=== PATIENT | male | born 1960 | race Caucasian/White ===

== ENCOUNTER 2019-09-16 06:52 | Emergency (ER) | payer OTHER, SELFPAY ==
[2019-09-16 06:53] VITALS: BP 150/75; PULSE 86; RESP 18; TEMP 36.4; O2SAT 96
[2019-09-16 07:02] VITALS: BP 162/94; PULSE 74; RESP 18; O2SAT 96; BMI 41.3
--- NOTE | 2019-09-16 07:07 | XR_ITS ---
WS: [id number] LEFT FOOT: 3 VIEW(S) TECHNIQUE: AP, oblique and lateral. HISTORY: fall, pain COMPARISON: None available. Seen only on one view is a lucency through the proximal metaphysis of the third metatarsal suspicious for fracture. Normal tarsal/metatarsal alignment. No soft tissue abnormality or bone destruction. Small calcaneal spur. Enthesopathy Achilles tendon. XR/XR foot LT min 3V* [id number] IMPRESSION: Suspicious for nondisplaced transverse fracture proximal third metatarsal.
--- NOTE | 2019-09-16 07:07 | ECG_ITS ---
[facility] Test Date: 2019-09-16 Pat Name: Sam Hutson Department: Room: Gender: Male Trainer: : 1960 Requested By: Ann Campbell Order Number: [id number] Patrice MD: Olaf Wilder M.D. Measurements Intervals [place] Rate: 65 P: 42 GA: 190 QRS: -6 QRSD: 111 T: 5 QT: 400 QTc: 417 Interpretive Statements SINUS RHYTHM INCOMPLETE RIGHT BUNDLE BRANCH BLOCK [90+ ms QRS DURATION, TERMINAL R IN V1/V2, 40+ ms S IN I/aVL/V4/V5/V6] Compared to ECG 06/04/2018 10:22:30 Incomplete right bundle-branch block now present Electronically Signed On 09-16-2019 19:04:44 CDT by Olaf Wilder M.D. [id number]
--- NOTE | 2019-09-16 07:09 | ED_ITS ---
HPI - Extremity Problem General: Chief complaint: Extremity Injury, Lower Stated complaint: LEFT FOOT PAIN Time Seen by Provider: 09/16/19 07:00 History of Present Illness: HPI Narrative: This patient is a 58-year-old male presenting with left foot pain. He fell yesterday landing on his right knee and scraping up his right arm. He also has pain in his left midfoot. He can weight-bear only on his heel. He can walk normally. The pain continued throughout the night. Ibuprofen did not help. He does not know why he fell. He says he was just walking and says he may have tripped but is not sure. He has not been ill recently. His medical history is significant for bradycardic episodes that have caused him to have shortness of breath, diaphoresis and presented to the ED. He was on some sort of blood pressure medicine for some time as well as warfarin for this diagnosis. He stopped taking both of those. 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 He said he has never had a heart attack. He does not think that is what happened yesterday because normally these episodes last for a long time rather than being quick onset and resolution. MD Complaint: extremity pain Onset (ago): day(s) (1) Pain Consistency: constant Location: left and lower extremity Quality: aching Relieving factors: nothing Exacerbating factors: weight bearing, walking and palpation Associated symptoms: Deny chest pain, fever(s) or rash Review of Systems General: Reports: 10 or more systems reviewed and unremarkable except in HPI and below Const: Denies: fever(s), chills, fatigue or malaise Eyes: Denies: change in vision ENMT: Reports: other (Seasonal allergies); Denies: odynophagia Card: Denies: chest pain or swelling of feet/ankles Resp: Denies: dyspnea, productive cough or non-productive cough GI: Denies: abdominal pain, nausea or vomiting : Denies: flank pain Musc: Denies: neck pain or back pain Skin/Breast: Denies: rash Neuro: Denies: headache(s), numbness in extremities or weakness in extremities Bobby/Lymph: Denies: easy bruising or easy bleeding [facility] ED PFSH: Social History (Updated 04/06/19 @ 10:00 by Laura Martin, DOCUMENTATION ANALYST) Smoking and tobacco status: never smoked Alcohol intake: never Physical Exam Const: COMMON NORMALS: no acute distress, patient oriented x3, no limitations and alert GENERAL APPEARANCE: cooperative and comfortable HENMT: HEAD & SCALP: normal to inspection FACE & SINUS: normal facial exam Eye: GENERAL EYE: appearance normal, both eyes and all related structures Neck/C-Spine: COMMON NORMALS: supple, no meningeal signs and no JVD Chest: COMMONS NORMALS: normal inspection of the chest Resp: COMMON NORMALS: normal respiratory effort, No use of accessory muscles and clear to auscultation bilaterally AUSCULTATION: clear to auscultation bilaterally Cardio: COMMON NORMALS: no JVD, regular rate, regular rhythm and No murmurs present (Cardio) RATE: regular rate RHYTHM: regular rhythm GI: COMMON NORMALS: Normal to inspection, nondistended, normoactive bowel sounds present, Soft to palpation and non-tender INSPECTION: Yes normal to inspection AUSCULTATION: Yes normoactive bowel sounds PALPATION: Yes Soft to palpation Back/Pelvis: COMMON NORMALS: thoracic and lumbar spine normal to inspection Extremity: GENERAL: Yes normal exam except as noted LEFT LOWER EXTREMITY: Yes foot & digits (Tenderness on palpation across the midfoot, worse on the medial side. No obvious deformity, no ecchymosis, some swelling.) Neuro: COMMON NORMALS: patient oriented x3, moves all extremities, no focal motor deficits and no sensory deficits noted SENSORIUM/ORIENTATION: Yes alert MENINGEAL SIGNS: Yes no meningeal signs Psych: COMMON NORMALS: mental status grossly normal, cooperative and normal affect Skin: COMMON NORMALS: no rashes or lesions noted and turgor normal GENERAL SKIN EXAM: no rashes or lesions noted and turgor normal Course ED course: Patient with foot pain after fall. On x-ray he has a subtle third metatarsal shaft fracture which is nondisplaced. He also gave me history of some bradycardic episodes which do not sound similar to what happened to him yesterday but an EKG was done to make sure he was in sinus rhythm. The EKG was in fact sinus rhythm. He said the episode felt nothing like prior episodes of bradycardia that he has had. He was put in a splint and made nonweightbearing. We discussed whether he was able to use crutches or could use a walker. He refused a walker and says he will use crutches. I counseled him regarding the instability of crutches and given that he has had falls the crutches are putting him at higher risk. He says he will mostly just stay off his foot and will be careful with the crutches. Vital Signs: Vital signs: Vital Signs Temperature 97.6 F 09/16/19 09:57 Pulse Rate 86 09/16/19 09:57 Respiratory Rate 16 09/16/19 09:57 Blood Pressure 150/75 09/16/19 09:57 Pulse Oximetry 96 09/16/19 09:57 MDM - Extremity (Nontraumatic) EKG Data^: EKG 1: EKG interpretation date: 09/16/19 EKG interpretation time: 07:15 Interpretation: sinus rhythm - incomplete RBBB Discharge Plan Discharge Patient Disposition: Home, Self-Care Clinical Impression: Metatarsal bone fracture Qualifiers: Encounter type: initial encounter Metatarsal bone: third Fracture type: closed Fracture alignment: nondisplaced Laterality: left Qualified Code(s): S92.335A - Nondisplaced fracture of third metatarsal bone, left foot, initial encounter for closed fracture Condition: Stable Prescriptions: No Action No Known Home Medications RF: 0 Discharge Orders: Discharge Order (Routine); Ordered 09/16/19 Ordered By: Ann Gonzales Referrals: Mayo Norton MD [Primary Care Provider] - Discharge Diet: Usual diet Discharge Activity: Use walker/crutches as instructed Patient Instructions: Foot Fracture in Adults (ED) Activity Restrictions/Additional Instructions: No weightbearing on the left foot. Follow-up with Dr. Akhtar within a week. Use extreme caution while on crutches to avoid further falls. Keep foot elevated. Apply ice. Stand Alone Forms: Work/School Release Discharge Date/Time: 09/16/19 09:59 Coding Level of Care Code ED Gas Attendant for Chg Fwd Exam Comprehensive
[2019-09-16 07:14] VITALS: BP 162/94; PULSE 68; RESP 16; O2SAT 98
--- NOTE | 2019-09-16 09:43 | DCPLANNER ---
manager valuation had message to schedule a follow up appointment for patient with ortho. manager valuation called the ortho clinic, spoke with [place], gave clinic patients information. manager valuation was told that patients information would be printed and reviewed. Clinic will call patient with appointment information.
[2019-09-16 09:57] VITALS: BP 150/75; PULSE 86; RESP 16; TEMP 36.4; O2SAT 96
--- NOTE | 2019-09-19 14:18 | DCPLANNER ---
Patient had a follow up appointment scheduled for 09.19.19 with ortho and did not attend appointment.
== END 2019-09-16 09:59 | disposition home or self-care (01) ==
PROVIDERS: Emergency Provider Emergency Medicine; PCP Family Medicine
DX: S92.335A Nondisplaced fracture of third metatarsal bone, left foot, initial encounter for closed fracture (principal); W19.XXXA Unspecified fall, initial encounter
CPT/HCPCS: 12345; 29515; 73630; 93005; 99283; E0114

== ENCOUNTER 2019-09-20 14:39 | Outpatient (CLI) | payer OTHER, SELFPAY | END 2019-09-20 14:40 | disposition home or self-care (01) | LOC: SPT 14:42 | PROVIDERS: PCP Family Medicine; Visit Provider Podiatrist Foot & Ankle Surgery | DX: Z47.89 Encounter for other orthopedic aftercare (principal); S92.335D Nondisplaced fracture of third metatarsal bone, left foot, subsequent encounter for fracture with routine healing; X58.XXXD Exposure to other specified factors, subsequent encounter; M25.572 Pain in left ankle and joints of left foot | CPT/HCPCS: 97760; L4361 ==

== ENCOUNTER 2019-09-26 15:12 | Outpatient (CLI) | payer OTHER, SELFPAY ==
--- NOTE | 2019-09-26 15:30 | CT_ITS ---
WS: [id number] NONCONTRAST CT LEFT FOOT TECHNIQUE: Noncontrast CT left foot with coronal and sagittal reformatted images. CLINICAL INFORMATION: rule out fracture COMPARISON: None. DLP: 699.[address] scans at [facility] use at least one of these dose optimization techniques: automat ed exposure control; mA and/or kV adjustment per patient size (includes targeted exams where dose is matched to clinical indication); or iterative reconstruction. FINDINGS: Nondisplaced fracture involving the dorsal second cuneiform best visualized on lateral view. Addition al tiny nondisplaced fracture involving the medial cuneiform. Navicular appears normal. Cuboid appea rs normal. Additional tiny nondisplaced fracture involving the base of the second metatarsal. First m etatarsal appears normal. Plantar and Achilles calcaneal spurring. Achilles enthesophyte. Talar dome is normal. CT/CT foot LT wo con* [id number] IMPRESSION: 1. Tiny nondisplaced fractures involving the first and second cuneiforms descr ibed above. 2. Additional tiny nondisplaced suspected fracture involving the base of the articulating second metatarsal. 3. No other visualized fractures.
== END 2019-09-26 15:13 | disposition home or self-care (01) ==
LOC: RADWPI 15:16
PROVIDERS: Family Provider Family Medicine; PCP Family Medicine; Visit Provider Podiatrist Foot & Ankle Surgery
DX: S92.225A Nondisplaced fracture of lateral cuneiform of left foot, initial encounter for closed fracture (principal); X58.XXXA Exposure to other specified factors, initial encounter
CPT/HCPCS: 73700

== ENCOUNTER → 2019-10-12 08:53 | Outpatient (BNVA) | payer OTHER, SELFPAY | PROVIDERS: Family Provider Family Medicine; PCP Family Medicine; Visit Provider Podiatrist Foot & Ankle Surgery | DX: S92.902D Unspecified fracture of left foot, subsequent encounter for fracture with routine healing (principal); W01.0XXD Fall on same level from slipping, tripping and stumbling without subsequent striking against object, subsequent encounter; Y92.009 Unspecified place in unspecified non-institutional (private) residence as the place of occurrence of the external cause | CPT/HCPCS: 73630 ==

== ENCOUNTER → 2019-11-01 13:03 | Outpatient (BNVA) | payer OTHER, SELFPAY | PROVIDERS: Family Provider Family Medicine; PCP Family Medicine; Visit Provider Podiatrist Foot & Ankle Surgery | DX: S93.315D Dislocation of tarsal joint of left foot, subsequent encounter (principal); W01.0XXD Fall on same level from slipping, tripping and stumbling without subsequent striking against object, subsequent encounter | CPT/HCPCS: 73630 ==

== ENCOUNTER 2020-07-12 08:45 | Inpatient (IN) | payer OTHER, SELFPAY ==
[2020-07-12] VITALS (23 sets, daily range): BP systolic 96–142; BP diastolic 60–96; PULSE 53–90; RESP 0–29; TEMP 36.6–36.9; O2SAT 92–99; BMI 41.3
--- NOTE | 2020-07-12 09:01 | XR_ITS ---
WS: [id number] Portable AP upright chest, 07/12/2020 Clinical Data: tachycardia Comparison: Portable chest, 06/04/2018. Findings: No nodules, masses or effusions are seen. The heart is enlarged. The pulmonary vascularity is not increased. No pneumonia or pneumothorax is seen. Monitor leads are on the chest wall. XR/XR chest 1V portable [id number] Impression: Cardiomegaly.
--- NOTE | 2020-07-12 09:01 | ECG_ITS ---
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 Measurements Intervals [place] Rate: 91 P: 27 RI: 159 QRS: -17 QRSD: 111 T: 21 QT: 353 QTc: 434 Interpretive Statements SINUS RHYTHM INCOMPLETE RIGHT BUNDLE BRANCH BLOCK [90+ ms QRS DURATION, TERMINAL R IN V1/V2, 40+ ms S IN I/aVL/V4/V5/V6] Compared to ECG 09/16/2019 07:20:06 No significant changes Electronically Signed On 07-12-2020 20:48:09 CDT by José Miguel Farias M.D. [id number]
--- NOTE | 2020-07-12 09:16 | ED_ITS ---
HPI - Arrhythmia/Palpitations General: Chief Complaint: Arrhythmia/Palpitations Stated Complaint: SVT Time Seen by Provider: 07/12/20 08:45 History of Present Illness: HPI narrative: 59-year-old male presents emergency room after an episode of chest palpitations shortness of breath. EMS was called on arrival he was found to be in SVT which was resolved with a Valsalva maneuver. On arrival here he denies any chest discomfort or shortness of breath states all of his symptoms have resolved. About 13 years ago an episode of bradycardia cardiology evaluation did not show anything he was referred to electrophysiology but evidently never made it to that evaluation. He states earlier this week he had a GI complaint of his very mild self-limited. MD complaint: rapid heart beat and heart racing Onset (ago): minute(s) Duration: intermittent and now resolved Severity: moderate Context: occurred during rest Arrhythmia history: SVT Associated symptoms: Deny anxiety, cough, diaphoresis, muscle cramps, nausea, paresthesias, pre-syncope, sense of impending doom, short of breath, syncope or vomiting Treatments prior to arrival: vagal maneuvers Review of Systems Const: Denies: diaphoresis ENMT: Denies: throat pain, ear or mastoid pain, nasal discharge or nasal congestion Card: Denies: syncope or pre-syncope Resp: Denies: dyspnea, productive cough or non-productive cough GI: Denies: nausea or vomiting : Denies: flank pain, dysuria, urinary frequency or urinary urgency Musc: Denies: muscle cramps Skin/Breast: Denies: rash or pruritus Psych: Denies: anxiety PFS ED PFSH: Social History Smoking and tobacco status: never smoked Alcohol intake: never Physical Exam Const: COMMON NORMALS: no acute distress GENERAL APPEARANCE: cooperative and comfortable ORIENTATION/CONSCIOUSNESS: Yes awake, Yes oriented to person, Yes oriented to place and Yes oriented to time HENMT: COMMON NORMALS: normocephalic, atraumatic, hearing grossly normal bilaterally, external ears normal, EAC's normal, TM's normal bilaterally, Normal nasal mucous membranes and turbinates present, moist oral mucous membranes and oropharynx normal HEAD & SCALP: normocephalic and atraumatic NOSE: Normal nasal mucous membranes and turbinates present EXTERNAL EAR: Yes external ears normal EXTERNAL AUDITORY CANAL: EAC's normal TYMPANIC MEMBRANE: TM's normal bilaterally Eye: COMMON NORMALS: Equal, round and reactive pupils present, EOMs intact bilaterally, conjunctivae normal and no scleral icterus CONJUNCTIVA: Yes conjunctivae normal PUPIL: Yes Equal, round and reactive pupils present Neck/C-Spine: COMMON NORMALS: full ROM, no lymphadenopathy, supple and no JVD Lymph: LYMPHATIC: no lymphadenopathy noted and no lymphedema noted Resp: COMMON NORMALS: normal respiratory effort, No retractions, No use of accessory muscles and clear to auscultation bilaterally AUSCULTATION: clear to auscultation bilaterally Cardio: COMMON NORMALS: no JVD, regular rate, regular rhythm and No murmurs present (Cardio) RATE: regular rate RHYTHM: regular rhythm GI: COMMON NORMALS: Soft to palpation and No hepatosplenomegaly present AUSCULTATION: Yes normoactive bowel sounds PALPATION: Yes Soft to palpation, No Tenderness to palpation present (GI), No Guarding due to palpation present (GI) and Yes No hepatosplenomegaly present Extremity: COMMON NORMALS: normal to inspection, capillary refill normal, no clubbing, cyanosis or edema, no calf tenderness and no pedal edema Neuro: SENSORIUM/ORIENTATION: Yes oriented to person, Yes oriented to place and Yes oriented to time Skin: COMMON NORMALS: no rashes or lesions noted GENERAL SKIN EXAM: no rashes or lesions noted Course Vital Signs: Vital signs: Vital Signs Temperature 98.5 F 07/12/20 08:46 Pulse Rate 67 07/12/20 13:14 Respiratory Rate 22 H 07/12/20 13:14 Blood Pressure 141/82 07/12/20 13:14 Pulse Oximetry 99 07/12/20 13:14 MDM - Arrhythmia/Palpitations MDM Narrative: Medical decision making narrative: Elevated troponin EKG does not show anything acute we will go ahead and admit for rule out and cardiology evaluation. Lab Data: Attestation: I reviewed the patient's lab results. Labs: Lab Results 07/12/20 07/12/20 07/12/20 Range/Units 09:06 09:06 09:06 WBC 5.1 (4.0-10.0) 10^3/ uL RBC 5.23 (4.1-5.3) 10^6/u L Hgb 16.1 (11.7-16.6) g/dL Hct 49.1 (42.0-52.0) % MCV 93.9 (80-94) fL MCH 30.8 (28.0-34.0) pg MCHC 32.8 (30.0-36.0) g/dL RDW 13.3 (12.1-15.1) % Plt Count 190 (130-400) 10^3/c mm MPV 10.3 (7.4-10.4) fL Neut % (Auto) 57.0 % Lymph % (Auto) 34.3 % Burnet % (Auto) 6.1 % Eos % (Auto) 1.4 % Baso % (Auto) 0.6 % Neut # (Auto) 2.89 (1.8-7.7) 10^3/u L Lymph # (Auto) 1.7 (0.8-4.8) 10^3/u L Burnet # (Auto) 0.3 (0.2-0.9) 10^3/u L Eos # (Auto) 0.1 (0.0-0.8) 10^3/u L Baso # (Auto) 0.0 (0.0-0.1) 10^3/u L Nucleated RBC % (a uto) 0 % Nucleated RBCs # 0.0 /100WBC Sodium 138 (136-145) mmol/L Potassium 4.1 (3.5-5.1) mmol/L Chloride 104 (98-107) mmol/L Carbon Dioxide 23 (22-29) mmol/L Anion Gap 15.1 (5-19) BUN 12 (6-20) mg/dL Creatinine 1.2 (0.7-1.2) mg/dL GFR Calculation 62.2 L (90-130) mL/min Glucose 136 H (65-115) mg/dL Calculated Osmolal ity 288 (285-295) mOsm/k g Calcium 8.9 (8.5-10.5) mg/dL Creatine Kinase 206 (39-308) U/L Troponin T Baselin e 29 H (0-15) ng/L Troponin T 120 Min [place] (0-15) ng/L Delta Troponin T (0-10) ABS# 05// Range/Units 10:55 WBC (4.0-10.0) 10^3/ uL RBC (4.1-5.3) 10^6/u L Hgb (11.7-16.6) g/dL Hct (42.0-52.0) % MCV (80-94) fL MCH (28.0-34.0) pg MCHC (30.0-36.0) g/dL RDW (12.1-15.1) % Plt Count (130-400) 10^3/c mm MPV (7.4-10.4) fL Neut % (Auto) % Lymph % (Auto) % Burnet % (Auto) % Eos % (Auto) % Baso % (Auto) % Neut # (Auto) (1.8-7.7) 10^3/u L Lymph # (Auto) (0.8-4.8) 10^3/u L Burnet # (Auto) (0.2-0.9) 10^3/u L Eos # (Auto) (0.0-0.8) 10^3/u L Baso # (Auto) (0.0-0.1) 10^3/u L Nucleated RBC % (a uto) % Nucleated RBCs # /100WBC Sodium (136-145) mmol/L Potassium (3.5-5.1) mmol/L Chloride (98-107) mmol/L Carbon Dioxide (22-29) mmol/L Anion Gap (5-19) BUN (6-20) mg/dL Creatinine (0.7-1.2) mg/dL GFR Calculation (90-130) mL/min Glucose (65-115) mg/dL Calculated Osmolal ity (285-295) mOsm/k g Calcium (8.5-10.5) mg/dL Creatine Kinase (39-308) U/L Troponin T Baselin e (0-15) ng/L Troponin T 120 Min [place] 81.45 H (0-15) ng/L Delta Troponin T 52.45 H* (0-10) ABS# EKG Data^: EKG 1: EKG interpretation date: 07/12/20 EKG interpretation time: 09:01 Interpretation: Sinus rhythm incomplete right bundle branch block. Rate 91 [place] interval [address] changes noted Other EKG comments: Chest X-Ray 07/12/20 09:01 Impression: Cardiomegaly. EKG 2: EKG interpretation date: 07/12/20 EKG interpretation time: 11:01 Prior EKG tracings: available for review Interpretation: Sinus rhythm with a incomplete bundle branch block present on previous EKG September 2019. Rate 73 [place] interval 210 Other EKG comments: Chest X-Ray 07/12/20 09:01 Impression: Cardiomegaly. Discharge Plan Discharge Patient Disposition: Admitted As Inpatient Admit Provider: Angela Lincoln Clinical Impression: Supraventricular tachycardia, Elevated troponin Condition: Stable Coding Level of Care Code ED Cover Cutter Machine for Chg Fwd Exam Comprehensive
[2020-07-12 09:24] LABS: Basophils % 0.6 %; Eosinophils # 0.1 10^3/uL (0.0-0.8); Eosinophils % 1.4 %; Hematocrit 49.1 % (42.0-52.0); Hemoglobin 16.1 g/dL (11.7-16.6); Lymphocytes # 1.7 10^3/uL (0.8-4.8); Lymphocytes % 34.3 %; Mean Corpuscular HGB Conc 32.8 g/dL (30.0-36.0); Mean Corpuscular Hemoglobin 30.8 pg (28.0-34.0); Mean Corpuscular Volume 93.9 fL (80-94); Mean Platelet Volume 10.3 fL (7.4-10.4); Monocytes # 0.3 10^3/uL (0.2-0.9); Monocytes % 6.1 %; Neutrophils # 2.89 10^3/uL (1.8-7.7); Nucleated Red Blood Cells % 0 %; Platelet Count 190 10^3/cmm (130-400); Red Blood Count 5.23 10^6/uL (4.1-5.3); Red Cell Distribution Width 13.3 % (12.1-15.1); White Blood Count 5.1 10^3/uL (4.0-10.0)
[2020-07-12 09:39] LABS: Blood Urea Nitrogen 12 mg/dL (6-20); Calcium 8.9 mg/dL (8.5-10.5); Carbon Dioxide 23 mmol/L (22-29); Chloride 104 mmol/L (98-107); Creatine Phosphokinase 206 U/L (39-308); Glomerular Filtration Rate 62.2 mL/min (90-130); Glucose 136 mg/dL (65-115); Osmolality Calculated 288 mOsm/kg (285-295); Sodium 138 mmol/L (136-145); Troponin(5th) Baseline 29 ng/L (0-15)
[2020-07-12 09:41] LABS: Anion Gap 15.1 (5-19); Potassium 4.1 mmol/L (3.5-5.1)
--- NOTE | 2020-07-12 11:01 | ECG_ITS ---
[facility] Test Date: 2020-07-12 Pat Name: Sam Hutson Department: Room: Gender: Male Political Director: : 1960 Requested By: Ky Campbell Order Number: [id number] Patrice MD: José Miguel Farias M.D. Measurements Intervals [place] Rate: 73 P: 31 [place]: 210 QRS: -12 QRSD: 109 T: 5 QT: 368 QTc: 407 Interpretive Statements SINUS RHYTHM WITH FIRST DEGREE AV BLOCK LOW QRS VOLTAGE IN PRECORDIAL LEADS [QRS DEFLECTION < 1.0 mV IN CHEST LEADS] PATTERN CONSISTENT WITH PULMONARY DISEASE INCOMPLETE RIGHT BUNDLE BRANCH BLOCK [90+ ms QRS DURATION, TERMINAL R IN V1/V2, 40+ ms S IN I/aVL/V4/V5/V6] Compared to ECG 09/16/2019 07:20:06 First degree AV block now present Low QRS voltage now present Electronically Signed On 07-12-2020 20:52:09 CDT by José Miguel Farias M.D. [id number]
--- NOTE | 2020-07-12 11:06 | PC.NURSE ---
Pt resting quietly between care, 2hr trop collected and sent to lab, repeat EKG complete, comfort measures offered, no other needs identified, will continue to monitor.
[2020-07-12 11:30] LABS: Troponin 5 2HR 81.45 ng/L (0-15)
[2020-07-12 11:37] LABS: Troponin 5 2HR Delta 52.45 ABS# (0-10)
[2020-07-12] MEDS: aspirin 81 mg Chew Tablet 324 MG PO (11:43)
[2020-07-12] MEDS: enoxaparin 120 mg/0.8 mL Syringe SUBCUT ×2 (11:43→19:23)
[2020-07-12] MEDS: nitroglycerin 1 gm/inch oint Pkt 0.5 INCH TOPICAL (12:10)
--- NOTE | 2020-07-12 14:43 | PC.NURSE ---
recd. from e.d. per w/c. up to bathroom then to telemetry. claudio. ambulation well.
--- NOTE | 2020-07-12 15:01 | ECG_ITS ---
[facility] Test Date: 2020-07-12 Pat Name: Sam Hutson Department: Room: [facility] Gender: Male Educational Technician: : 1960 Requested By: Ky Campbell Order Number: [id number] Patrice MD: José Miguel Farias M.D. Measurements Intervals [place] Rate: 64 P: 39 [place]: 206 QRS: -10 QRSD: 109 T: 3 QT: 429 QTc: 443 Interpretive Statements SINUS RHYTHM INCOMPLETE RIGHT BUNDLE BRANCH BLOCK [90+ ms QRS DURATION, TERMINAL R IN V1/V2, 40+ ms S IN I/aVL/V4/V5/V6] Compared to ECG 07/12/2020 10:56:34 First degree AV block no longer present Electronically Signed On 07-12-2020 20:53:12 CDT by José Miguel Farias M.D. [email or web address]/store/[id number]
--- NOTE | 2020-07-12 15:48 | PC.NURSE ---
in. all deny any needs.
[2020-07-12 16:22] LABS: Troponin 5 6HR 76.85 ng/L (0-15)
[2020-07-12 16:31] LABS: Troponin 5 6HR Delta 47.85 ng/L (0-12)
[2020-07-12] MEDS: atorvastatin 40 mg Tablet 80 MG PO (19:22)
--- NOTE | 2020-07-12 19:48 | P.CONIM_ITS ---
Providers/Reason For Consult Consulting Physican/Specialty*: Cardiology Reason for Consult*: Non-ST relation [facility] Attending Physician: Angela Lincoln MD Primary Care Provider: Mayo Norton MD History of Present Illness History of Present Illness Sam Hutson is a 59 year old male tobacco abuse both cigars and smokeless was admitted with chest pressure and SVT. According to the patient at his workplace all of a sudden he started feeling palpitation and racing of the heart along with that he was feeling chest pressure it all started 7 AM around 7 30-8 a.m. ambulance was called. Valsalva maneuver was performed which converted back into sinus rhythm. He was taken to the emergency room. Due to high risk factors Baseline abnormal cardiac markers and complaint of chest pressure patient was admitted. Delta troponin increased however remains below 100. Differential diagnosis could be secondary to supraventricular tachycardia however cannot rule out obstructive coronary artery disease. According to the patient 10-year ago he had a negative angiogram. He recalls couple of episode of chest pain at home as well. He has a broken left foot and cannot exercise. He is obese and would not like to lay down for Lexiscan MIBI stress test. We would therefore proceed with left heart cath in the morning. Review of Systems Const: Denies: diaphoresis ENMT: Denies: throat pain, ear or mastoid pain, nasal discharge or nasal congestion Card: Denies: syncope or pre-syncope Resp: Denies: dyspnea, productive cough or non-productive cough GI: Denies: nausea or vomiting : Denies: flank pain, dysuria, urinary frequency or urinary urgency Musc: Denies: joint warmth or muscle cramps Skin/Breast: Denies: rash or pruritus Psych: Denies: anxiety Meds/Allergies Home Medications and Allergies Home Medications Medication Instructions Recorded Confirmed Last Taken Type Cam boot #1 ea 09/20/19 07/12/20 Unknown Rx Sole Supports Custom Orthotics #1 ea 11/24/19 07/12/20 Unknown Rx naproxen sodium [Aleve] 220 mg PO Q12H PRN 07/12/20 07/12/20 07/11/20 History Allergies Allergy/AdvReac Type Severity Reaction Status Date / Time No Known Allergies Allergy Verified 12/21/19 14:36 Current Medications Current Medications Generic Name Dose Route Start Last Admin Trade Name Freq PRN Reason Stop Dose Admin Atorvastatin Calcium 80 mg 07/12/20 16:50 07/12/20 19:22 Atorvastatin 40 Mg Tablet PO 80 mg BEDTIME SUSAN Administration Enoxaparin Sodium 120 mg 07/12/20 17:00 07/12/20 19:23 Enoxaparin 120 Mg/0.8 Ml Syringe SUBCUT 120 mg Q12H SUSAN Administration PFSH Acute PFSH: Social History Smoking and tobacco status: never smoked Alcohol intake: never Vitals/I&O/Wt Last Vital Signs Temp 98.5 F 07/12/20 08:46 Pulse 60 07/12/20 16:45 Resp 16 07/12/20 16:45 BP 140/79 07/12/20 16:45 Pulse Ox 97 07/12/20 14:20 07/12/20 07/12/20 07/12/20 06:59 14:59 22:59 Intake Total 480 / 480 Balance 480 / 480 Weight last 48 hrs Weight 280 lb Physical Exam Narrative: EXAM NARRATIVE: GENERAL: Patient is alert, awake and oriented x3. NECK: No jugular vein distension. HEENT: No cyanosis. No icterus. No pallor. HEART: Regular S1 and S2. No murmur, rub or gallop. LUNGS: Clear to auscultate bilaterally. ABDOMEN: Soft, nontender and nondistended. Positive bowel sounds. No guarding, rebound or tenderness. CENTRAL NERVOUS SYSTEM: Grossly nonfocal. EXTREMITIES: Lower extremities with trace edema bilaterally. Data Labs: Other Labs: SINUS RHYTHM INCOMPLETE RIGHT BUNDLE BRANCH BLOCK [90+ ms QRS DURATION, TERMINAL R IN V1/V2, 40+ ms S IN I/aVL/V4/V5/V6] Compared to ECG 07/12/2020 10:56:34 First degree AV block no longer present A&P Assessment and plan (1) Elevated troponin: Patient is moderate to high risk for acute coronary syndrome. As above he is not able to perform stress test at the same time he has abnormally high cardiac markers with chest pressure we would therefore proceed with left heart cath and PCI if indicated. He was given Lovenox shot in the ER. I will hold morning Lovenox. I will load him with Plavix tonight. Continue aspirin statin. I explained all risk benefit and alternative for the procedure he understand the risk for urgent emergent bypass, surgery, transfusion, stroke, arrhythmia and . He is good candidate for DAPT. Status: Acute (2) Supraventricular tachycardia: Stable in sinus rhythm. 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
--- NOTE | 2020-07-12 20:05 | P.HP_ITS ---
Providers/Chief Complaint Admitting Physician: Angela Lincoln MD Primary Care Provider: Mayo Norton MD Chief Complaint: SVT History of Present Illness Sam Hutson is a 59 year old male who presnted today with c/o chest discomfort, palpitations, found to have SVT by EMS, resolved with valsalva maneuver, sinus rhythm by arrival at ER,. Troponin series with signifcant delta ~50 at 2 and 6 hr. Intermittent chets discomfort continues. Review of Systems General: Reports: 10 or more systems reviewed and unremarkable except in HPI and below Const: Denies: fever(s), chills or body aches Eyes: Denies: change in vision, blurry vision or photophobia ENMT: Reports: hoarseness; Denies: throat pain, enlarged tonsils, odynophagia or nasal congestion Card: Denies: chest pain, palpitations, irregular heart rhythm, edema, swelling of feet/ankles, lightheadedness, pre-syncope, dyspnea on exertion or orthopnea Resp: Denies: dyspnea, productive cough, non-productive cough, wheezing, stridor, pain on inspiration, change in phlegm color, hemoptysis or chest congestion GI: Denies: abdominal pain, nausea, vomiting, hematemesis, coffee ground emesis, dysphagia, heartburn, diarrhea, constipation, GI cramping, change in sto ol character, hematochezia or melena : Denies: flank pain, dysuria, urinary frequency, urinary urgency, urinary hesitancy or hematuria Musc: Denies: neck pain, back pain, extremity pain, joint swelling, joint warmth or deformity Neuro: Denies: headache(s), numbness in extremities, weakness in extremities, sensory changes, difficulty walking, frequent falls, dizziness, vertigo, behavioral changes, Slurred speech present or seizure-like activity Psych: Denies: anxiety, depression, suicidal ideation or homicidal ideation Endo: Denies: polyuria, polydipsia, tired all the time, cold intolerance or hot flashes Bobby/Lymph: Denies: easy bruising or easy bleeding Medications/Allergies Home Medications Medication Instructions Recorded Confirmed Last Taken Type Cam boot #1 ea 09/20/19 07/12/20 Unknown Rx Sole Supports Custom Orthotics #1 ea 11/24/19 07/12/20 Unknown Rx naproxen sodium [Aleve] 220 mg PO Q12H PRN 07/12/20 07/12/20 07/11/20 History Allergies Allergy/AdvReac Type Severity Reaction Status Date / Time No Known Allergies Allergy Verified 12/21/19 14:36 PFSH Acute PFSH: Social History Smoking and tobacco status: never smoked Alcohol intake: never Vitals/I&O/Wt Last Vital Signs Temp 98.5 F 07/12/20 08:46 Pulse 60 07/12/20 16:45 Resp 16 07/12/20 16:45 BP 140/79 07/12/20 16:45 Pulse Ox 97 07/12/20 14:20 07/12/20 07/12/20 07/12/20 06:59 14:59 22:59 Intake Total 480 / 480 Balance 480 / 480 Weight last 48 hrs Weight 127.006 kg Physical Exam Narrative: EXAM NARRATIVE: General: No acute distress, AO x3 HEENT: PERRLA, pupils bilaterally equal and reactive, pallors not present Chest: Normal vesicular breath sounds, no added sounds, equal good air entry bilaterally CVS: S1-S2 regular, no murmurs, no tachycardia, no gallops, no rubs Abdomen: Soft, nontender, no organomegaly, bowel sounds present Neuro: No focal deficits, no facial deformity, AO x3, power 5/5 in all limbs Extremities: no edema, clubbing or cyanosis Data : 07/12/20 09:06 07/12/20 09:06 A&P Assessment and plan (1) NSTEMI (non-ST elevated myocardial infarction): elevated troponin. no ST-T changes on EKG. 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
--- NOTE | 2020-07-12 20:06 | PC.NURSE ---
Physician Rounding Nurse present during rounding. Dr. Wilder ordered to schedule angiogram tomorrow around 2pm. Pt may have early breakfast. Ordered to hold 5am Lovenox on 07/13 and to give 300mg plavix tonight.
[2020-07-12] MEDS: clopidogrel 300 mg Tablet PO (21:25)
[2020-07-13] VITALS (45 sets, daily range): BP systolic 100–165; BP diastolic 55–108; PULSE 47–77; RESP 14–36; TEMP 36.8; O2SAT 93–99
--- NOTE | 2020-07-13 05:00 | USCV_ITS ---
Sam Hutson Age: 59 Gender: M : 1960 Exam Date: 07/13/2020 06:27 Ordering Phys: Angela Lincoln MD Technologist: Exam Location: [facility] – [place], [place] Indication: NSTEMI BP: 135 / 73 HR: 57 Rhythm: Sinus Technical Quality: Fair MEASUREMENTS (Male / Female) Normal Values 2D ECHO LV Diastolic Diameter PLAX 4.0 cm 4.2 - 5.9 / 3.9 - 5.3 cm LV Systolic Diameter PLAX 2.3 cm IVS Diastolic Thickness 1.0 cm 0.6 - 1.0 / 0.6 - 0.9 cm IVS Systolic Thickness 1.2 cm LVPW Diastolic Thickness 1.0 cm 0.6 - 1.0 / 0.6 - 0.9 cm LVPW Systolic Thickness 1.7 cm LVOT Diameter 2.0 cm LV Ejection Fraction 2D Teich 74.2 % LA Diameter 4.3 cm LA Width 3.8 cm LA Height 6.0 cm RA Width 4.6 cm RA Height 5.1 cm M-MODE LV Diastolic Diameter MM 5.6 cm 4.2 - 5.9 / 3.9 - 5.3 cm LV Systolic Diameter MM 3.8 cm LV Ejection Fraction MM Teich 59.5 % IVS Diastolic Thickness MM 1.1 cm 0.6 - 1.0 / 0.6 - 0.9 cm IVS Systolic Thickness MM 1.8 cm LVPW Diastolic Thickness MM 1.0 cm 0.6 - 1.0 / 0.6 - 0.9 cm LVPW Systolic Thickness MM 1.7 cm RV Diastolic Diameter MM 1.6 cm Aortic Annulus Diameter 3.5 cm LA Ao Ratio MM 1.4 MV E Point Septal Separation 1.1 cm DOPPLER AV Peak Velocity 175.0 cm/s LVOT Peak Velocity 100.0 cm/s AV Area Cont Eq vti 2.0 cm squared AV Area Cont Eq pk 1.8 cm squared MV Area PHT 5.0 cm squared Mitral E to A Ratio 1.3 MV E' Velocity 53.5 cm/s Mitral E to MV E' Ratio 10.3 Mitral E to LV E' Lateral Ratio 8.6 Mitral E to LV E' Septal Ratio 13.1 TR Peak Velocity 193.0 cm/s TR Peak Gradient 14.9 mmHg TV Peak E Velocity 108.0 cm/s Right Atrial Pressure 3.0 mmHg Pulmonary Artery Systolic Pressu 17.9 mmHg PV Peak Velocity 77.0 cm/s FINDINGS Left Ventricle Normal left ventricular cavity size. Normal left ventricular systolic function. Left ventricular ejection fraction is estimated at 60 %. No diagnostic regional wall motion abnormalities. Normal diastolic function. Right Ventricle Normal right ventricular size and systolic function. Right ventricular systolic pressure 17.9 mmHg. Right Atrium Normal right atrial size. Left Atrium Normal left atrial size. Mitral Valve Structurally normal mitral valve. No mitral valve stenosis. Trace mitral valve regurgitation. Aortic Valve Aortic valve not well visualized. No aortic valve stenosis. No aortic valve regurgitation. Tricuspid Valve Structurally normal tricuspid valve. Trace tricuspid valve regurgitation. Pulmonic Valve Pulmonic valve not well visualized. No pulmonary valve stenosis. No significant pulmonary valve regurgitation. Pericardium No pericardial effusion. Aorta Normal-sized aortic root. CONCLUSIONS 1. Normal left ventricular cavity size and systolic function. Left ventricular ejection fraction is estimated at 60 %. No diagnostic regional wall motion abnormalities. Normal diastolic function. 2. Normal right ventricular size and systolic function. 3. Normal pulmonary artery pressure. 4. No significant valvular abnormality. 5. No prior similar studies to compare. Khalida Ybarra MD (Electronically Signed) Final Date: 13 Jul 2020 13:47 S
--- NOTE | 2020-07-13 05:41 | PC.NURSE ---
Cath prep Groin and wrist shaved. Consent signed. Bilateral pedal and posterior tibial pulses marked. AM lovenox held at this time.
[2020-07-13 05:42] LABS: Basophils # 0.1 10^3/uL (0.0-0.1); Basophils % 0.8 %; Eosinophils # 0.2 10^3/uL (0.0-0.8); Eosinophils % 2.1 %; Hematocrit 46.6 % (42.0-52.0); Hemoglobin 15.3 g/dL (11.7-16.6); Lymphocytes # 2.8 10^3/uL (0.8-4.8); Lymphocytes % 38.6 %; Mean Corpuscular HGB Conc 32.8 g/dL (30.0-36.0); Mean Corpuscular Hemoglobin 30.8 pg (28.0-34.0); Mean Corpuscular Volume 93.8 fL (80-94); Mean Platelet Volume 10.2 fL (7.4-10.4); Monocytes # 0.6 10^3/uL (0.2-0.9); Monocytes % 8.4 %; Neutrophils # 3.56 10^3/uL (1.8-7.7); Neutrophils % 49.7 %; Nucleated Red Blood Cells % 0 %; Platelet Count 214 10^3/cmm (130-400); Red Blood Count 4.97 10^6/uL (4.1-5.3); Red Cell Distribution Width 13.3 % (12.1-15.1); White Blood Count 7.2 10^3/uL (4.0-10.0)
[2020-07-13 06:01] LABS: Alanine Aminotransferase 41 U/L (0-41); Albumin Level 3.8 g/dL (3.5-5.2); Alkaline Phosphatase 94 IU/L (40-130); Anion Gap 14.2 (5-19); Aspartate Amino Transferase 27 U/L (0-40); Blood Urea Nitrogen 11 mg/dL (6-20); Calcium 8.8 mg/dL (8.5-10.5); Carbon Dioxide 25 mmol/L (22-29); Chloride 102 mmol/L (98-107); Globulin 2.6 g/dL (1.3-4.6); Glomerular Filtration Rate 62.2 mL/min (90-130); Glucose 91 mg/dL (65-115); Osmolality Calculated 283 mOsm/kg (285-295); Potassium 4.2 mmol/L (3.5-5.1); Sodium 137 mmol/L (136-145); Total Bilirubin 0.6 mg/dL (0.15-1.2); Total Protein 6.4 g/dL (6.6-8.7)
--- NOTE | 2020-07-13 07:31 | XACV_ITS ---
Exam Room: [facility] Ht: 175 cm Wt: 127 kg BSA: 2.55 m2 Gender: Male : 1960 Any Known Allergies: No known allergies Exam Priority: Routine Procedure(s): Procedure Description: Diagnostic procedure Procedure Description: PCI procedure Procedure Description: Left ventriculography Procedure Description: Drug Eluting Coronary Stent Procedure Description: PTCA Procedure Description: Miscellaneous Procedure Description: ACT Procedure Description: Coronary Angiography Diagnostic Cath Status: Elective Diagnostic Findings * Left Main has no disease. * Circumflex has no disease. * Right Coronary Artery has no disease. * Mid Left Anterior Descending: obstructive 70% stenosis, YAMILETH: 3 flow. * Distal Left Anterior Descending: mild 40% stenosis, YAMILETH: 3 flow. * Coronary angiography shows right dominance. PCI Status: Elective PCI Indication: NSTE - ACS Interventional Findings * Mid Left Anterior Descendin% stenosis treated with a MDT R TERESITA 4.0X18 YASMIN, and MDT SHAWN EUPHORA RX [id number] BALLOON. 0% residual stenosis, YAMILETH: 3 flow. Conclusions 1. There is obstructive coronary artery disease with one vessel disease. 2. Mid Left Anterior Descending was treated with a Drug Eluting Stent, and Balloon. Recommendations * Continue current medical management and risk factor modification. Diagnostic RX Recommendation: PCI w/o planned CABG Pressures Phase:Rest AO : 124 / 82 ( 103 ) @ 4:01:00 PM Clinical Evaluation EBL: 5mL-10mL Procedural Details Procedure Consent Obtained. Pre-Procedure Time Out. Identified patient by full name and date of as verbalized by the patient/guarantor. Does the consent match the physician's order: Yes. Accurate & Complete Informed Consent: Yes. Inpatient/Outpatient History & Physical on Chart: Yes. If H&P is completed, is and addenduem needed: No; If yes, is the addendum complete: N/A. Visualize and Verify Site with Patient/Guarantor: N/A. Relevant Radiology Images available: Yes. Pre-op teaching completed and patient verbalized understanding. The risks, benefits, and alternatives of sedation and/or procedure were discussed by physician. The patient agrees to continue. Procedure started. Correct patient, site and procedure confirmed by cath team. Current diagnosis: Chest Pain. PERRLA. 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 Lungs clear x 5 lobes. IV Site on Arrival: 20 gauge in the left anticubital. IV Fluids: 0.9% NaCl at KVO. 0 mL infused prior to helper animal laboratory. Pre Procedural Pulses: bilateral dorsalis pedis was 3+. Pre Procedural Pulses: bilateral posterior tibial was 3+. Pre Procedural Pulses: bilateral radial was 3+. Oxygen started at 2liters/min via nasal canula. bilateral groins was prepped with chloroprep then draped in the usual sterile fashion. right radial was prepped with chloroprep then draped in the usual sterile fashion. Physician notified. Baseline sample Acquired. HR: 55 BPM. Physician arrived. Equipment: 6F - Radial. ACIST Manifold Kit Model BT 2000. Cardiac Cath Pack. Heparinized Saline (2 units/mL), 1000 mL bag. Physician scrubbed in. Immediate Pre-Procedure Time Out. Correct Patient: Yes; Correct Procedure: Yes; Correct Site: Yes; Correct Patient Position: Yes; Correct Supplies: Yes; Dried Flammable Prep: Yes; Blood Products Available: No;. Lidocaine 1% infiltrated to the right radial. A 5 czech TIG catheter in over wire. Catheter removed over the exchange wire. A 5 czech Farhan catheter in over wire. Catheter out. A 5 czech JL4 catheter in over wire. Catheter out. A 5 czech JR4 catheter in over wire. Multiple views taken of right coronary artery. Catheter out. A 5 czech AL1 catheter in over wire. Multiple views taken of left coronary artery. Catheter out. 6 czech AL 0.75 guide catheter was inserted over the wire. Wire and guide out. Radial site aborted due to spasms. Lidocaine 1% infiltrated to the right groin. Arterial access obtained with micropuncture set. 6 czech AL 0.75 guide catheter was inserted over the wire. Pressure wire inserted. Pressure wire out. [place] guidewire was advanced through the guide catheter to lesion in the mid LAD. Inflation Number : 1 Lc [place] TERESITA 4.0X18 YASMIN -Lot Number#[id number] was prepped and advanced across the Mid LAD. The stent was deployed at 16 KIERSTEN for 0:37 seconds. Stent expiration date: 12-08-2021. Stent balloon out over wire. Inflation number : 2 A DG ESCOBAR EUPHORA RX [id number] BALLOON was prepped and advanced across the Mid LAD , then inflated to 14 KIERSTEN for 0:14 seconds. Balloon out. Wire out. ACT drawn. Results 314 seconds. Therapeutic limits - pre-heparin administration 90-150 seconds and monitoring heparin during a vascular procedure >250 seconds. Guide out. TR band placed. Hemostasis obtained. A TR Band was successful obtaining hemostatsis at the Right Radial artery insertion site. A Suture was successful obtaining hemostatsis at the Right Femoral artery insertion site. Sheath(s) sutured into position with 2-0 silk and sterile 4x4's and Op-site applied over the site. No oozing or signs and symptoms of hematoma noted. Arterial sheath flushed and connected to tranducer and pressure bag with heparinized saline. Post Procedure: Pulses reassessed and unchanged. PERRLA. 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 No VTE prophylaxis required. Medication's Wasted: Lidocaine 1% = 4 mL. Medication's Wasted: Nitro = 49.6 mg. Medication's Wasted: Heparin = 3000 units. Medication's Wasted: Other = Versed 1 mg. Total IV fluids: 75 mL. Contrast type used: Omnipaque 300 mgI/mL, 500 mL bottle. PCI Indication: NSTE. Post-op diagnosis: NSTEMI. Complications: None. Estimated blood loss: 5mL-10mL. Procedure completed. Patient transferred by bed to 1st floor. Vital chart was stopped. Access Site Site: Right Radial artery Sheath Size: 6 Fr Hemostasis Method: TR Band Hemostasis Success: Successful Site: Right Femoral artery Sheath Size: 6 Fr Hemostasis Method: Suture Hemostasis Success: Successful Procedure Medications Start: 4:30 PM Stop: 4:30 PM Medication: Versed Amount: 2 mg Route: I.V. Start: 4:31 PM Stop: 4:31 PM Medication: Fentanyl Amount: 50 mcg Route: I.V. Start: 4:35 PM Stop: 4:35 PM Medication: Versed Amount: 1 mg Route: I.V. Start: 4:42 PM Stop: 4:42 PM Medication: Nitrogylcerin Amount: 200 mcg Route: I.A. Start: 4:41 PM Stop: 4:41 PM Medication: Versed Amount: 1 mg Route: I.V. Start: 4:49 PM Stop: 4:49 PM Medication: Versed Amount: 1 mg Route: I.V. Start: 4:56 PM Stop: 4:56 PM Medication: Nitrogylcerin Amount: 200 mcg Route: I.A. Start: 4:56 PM Stop: 4:56 PM Medication: Versed Amount: 1 mg Route: I.V. Start: 4:59 PM Stop: 4:59 PM Medication: Fentanyl Amount: 50 mcg Route: I.V. Start: 5:10 PM Stop: 5:10 PM Medication: Versed Amount: 1 mg Route: I.V. Start: 5:17 PM Stop: 5:17 PM Medication: Fentanyl Amount: 50 mcg Route: I.V. Start: 5:24 PM Stop: 5:24 PM Medication: Heparin Amount: 6000 units Route: I.V. I, the attending physician, have reviewed and verified all procedure medications. Yes, all medications given per verbal order History/Risk Factors Hypertension: No Dyslipidemia: No Peripheral Arterial Disease (PAD): No Myocardial Infarction (WA): No Obesity: No Renal Disease: No Tobacco Use: Never Prior Interventions PCI: No CABG: No Valve Surgery: No Report Signatures Finalized by Olaf Wilder MD on 07/25/2020 06:50 PM
--- NOTE | 2020-07-13 11:11 | P.PN_ITS ---
Subjective Subjective: Interval history: Plan for cardiac cath this afternoon. No chest pain dyspnea palpitations. Medications: Reviewed: Yes Vitals/I&O/Wt Last Vital Signs Temp 98.3 F 07/13/20 06:04 Pulse 63 07/13/20 11:00 Resp 23 H 07/13/20 11:00 BP 134/86 07/13/20 11:00 Pulse Ox 96 07/13/20 11:00 07/12/20 07/13/20 07/13/20 22:59 06:59 14:59 Intake Total 840 / 840 Balance 840 / 840 Weight last 48 hrs Weight 127.006 kg Physical Exam Narrative: EXAM NARRATIVE: General: No acute distress, AO x3 HEENT: PERRLA, pupils bilaterally equal and reactive, pallors not present Chest: Normal vesicular breath sounds, no added sounds, equal good air entry bilaterally CVS: S1-S2 regular, no murmurs, no tachycardia, no gallops, no rubs Abdomen: Soft, nontender, no organomegaly, bowel sounds present Neuro: No focal deficits, no facial deformity, AO x3, power 5/5 in all limbs Extremities: no edema, clubbing or cyanosis Data : 07/13/20 04:04 07/13/20 04:04 A&P Assessment and plan (1) NSTEMI (non-ST elevated myocardial infarction): elevated troponin. no ST-T changes on EKG. cardiology consult appreciated, cardiac cath today lovenox 1mg/kg q12h asa 81, lipitor 80 echocardiogram taken, results pending npo for cardiac cath Status: Acute (2) Supraventricular tachycardia: resolved Status: Acute Attestations Medical Necessity Statement*: cardiac cath today Coding Level of Care Code Acute Exercise Science Internship for [facility] Fw Diagnoses NSTEMI (non-ST elevated myocardial infarction) I21.4 Supraventricular tachycardia I47.1
--- NOTE | 2020-07-13 13:57 | PC.CHAP ---
Pastoral Care Encounter/Spiritual Assessment Type of Contact [] Declined ticket printer visit [] Patient/Family/Request visit [] Outpatient visit [] Follow-up visit [] Physician referral [] Code/Alert [] Routine visit [] Staff referral [] Actively dying [] Patient sleeping [] Family support [] [] Out of room [] Palliative care [] [] Receiving care in room [] Pre-surgical visit [] Trauma [] Long length of stay [xx] ICU visit [] Other: Relational/Emotional Strength [] Patient feels connected with others/family/visitors/staff [] Distress [] Loneliness/isolation [] Abandonment Spirituality of Patient [xx] Person of Rhiannon [] Attends Rastafarian of their Rhiannon [xx] Believes in Prayer [] Reads Bible or Baptist materials [] There are Spiritual issues to be addressed Surveying Crew Rodman Interventions [xx] Prayer [] Active listening [xx] Non-anxious presence [] Spiritual/emotional support [] Crisis/trauma care [] Spiritual counseling [] Bereavement support [] Provided bereavement packet [] Provided Bible/devotional materials [] Provided toy/stuffed animal, coloring book to patient or family member [] Provided Communion [] Anointing/[place] [] Salvation [xx] Completed spiritual assessment [] Other: Impact on Illness or Injury [] Angry [] Fearful [] Anxious [] Often cries [] Exhaustion [] Unable to work [] Unable to attend scientology [] Unable to walk/stand [] Unable to read [] Unable to drive [] Unable to eat/drink [] Unable to sleep [] Unable to be with family [] Patient intubated [] Other: Summary Staff recommended prayer for patient as he is to undergo a specialized treatment. Patient's spouse present with patient and she agreed to prayer for her . Time spent with patient 2 minutes.
[2020-07-13] MEDS: diphenhydrAMINE 50 mg Capsule PO (14:29)
[2020-07-13] MEDS: sodium chloride 0.9% 1,000 ML 50 ML IV (14:29)
--- NOTE | 2020-07-13 14:32 | PC.NURSE ---
resting in bed. anxious for cath .
--- NOTE | 2020-07-13 16:28 | PC.NURSE ---
1600 to bundle tier and labeler.
--- NOTE | 2020-07-13 16:29 | W.PM.OPSUD ---
Surgery/Procedure H&P Update DATE OF PROCEDURE: July 13, 2020 DATE H&P PERFORMED: 07/12/20 H&P UPDATE INFORMATION: I have reviewed H&P completed within last 30 days, I have examined patient prior to procedure, No changes to prior documentation, Changes to prior documentation as noted here and H&P to be scanned into chart PREOP DIAGNOSIS: Chest pain/acute coronary syndrome PATIENT REASSESSED PRIOR TO SEDATION, WITH NO CHANGE NOTED: Yes PHYSICAL EXAM: alert, oriented x 3 and clear to auscultation bilaterally AIRWAY EVAL/ANESTHESIA PLAN: ASA II, Risks, benefits & alternatives of sedation and/or procedure discussed and Patient agrees to continue as planned
[2020-07-13] MEDS: sodium chloride 0.9% 1,000 ML 100 ML IV (18:15)
--- NOTE | 2020-07-13 19:03 | P.PN_ITS ---
Subjective Subjective: Interval history: Status post coronary angiogram which showed proximal LAD significant stenosis treated with single drug-eluting stent postdilated with noncompliant balloon. Good angiographic result with YAMILETH-3 flow was restored. Medications: Reviewed: Yes Vitals/I&O/Wt Last Vital Signs Temp 98.3 F 07/13/20 06:04 Pulse 69 07/13/20 18:30 Resp 21 H 07/13/20 18:30 BP 112/93 07/13/20 18:30 Pulse Ox 93 07/13/20 18:30 Weight last 48 hrs Weight 280 lb Physical Exam Narrative: EXAM NARRATIVE: GENERAL: Patient is alert, awake and oriented x3. NECK: No jugular vein distension. HEENT: No cyanosis. No icterus. No pallor. HEART: Regular S1 and S2. No murmur, rub or gallop. LUNGS: Clear to auscultate bilaterally. ABDOMEN: Soft, nontender and nondistended. Positive bowel sounds. No guarding, rebound or tenderness. CENTRAL NERVOUS SYSTEM: Grossly nonfocal. EXTREMITIES: Lower extremities with trace edema bilaterally. Const: COMMON NORMALS: alert Resp: COMMON NORMALS: clear to auscultation bilaterally AUSCULTATION: clear to auscultation bilaterally Neuro: SENSORIUM/ORIENTATION: Yes alert Data : 07/13/20 04:04 07/13/20 04:04 A&P Assessment and plan (1) Elevated troponin: Status post drug-eluting stent to proximal LAD postdilated with noncompliant balloon. Continue aspirin statin beta-tyler. He was loaded with 3 mg of Plavix we will give another 300 mg. Further plan will advise as per progress of the patient. Status: Acute (2) Supraventricular tachycardia: Stable in sinus rhythm. Status: Acute Attestations Medical Necessity Statement*: Patient require continuation hospitalization for above defined care. Coding Level of Care Code Established Pt Acute Neonatal Surgeon for Chg Fwd Patient Type Established History Expanded Problem Focused Exam Expanded Problem Focused Medical Decision Making Moderate Complexity Diagnoses Elevated troponin R77.8 Supraventricular tachycardia I47.1
[2020-07-13 21:09] LABS: Partial Thromboplastin Time 82.2 SECONDS (23.9-36.7)
[2020-07-13] MEDS: atorvastatin 40 mg Tablet 80 MG PO (21:18)
[2020-07-13 23:03] LABS: Partial Thromboplastin Time 30.7 SECONDS (23.9-36.7)
[2020-07-14] VITALS (11 sets, daily range): BP systolic 123–154; BP diastolic 77–113; PULSE 61–86; RESP 17–32; TEMP 36.7–36.8; O2SAT 94–97
--- NOTE | 2020-07-14 00:57 | PC.NURSE ---
Sheath removed @ 0018. Pressure held for 20 minutes. No signs of hematoma formation. Patient was instructed to notify nurse of bleeding, pain, and to keep leg straight. Patient verbalized understanding. Nurse will continue to monitor.
[2020-07-14] MEDS: temazepam 15 mg Capsule PO (01:51)
--- NOTE | 2020-07-14 03:10 | PC.NURSE ---
Patient continues to show no S/S of a hematoma to groin area. Patient has no C/O of pain or other needs at this time. Nurse will continue to monitor.
[2020-07-14] MEDS: sodium chloride 0.9% 1,000 ML 100 ML IV (03:45)
[2020-07-14 04:56] LABS: Basophils # 0.1 10^3/uL (0.0-0.1); Basophils % 0.7 %; Eosinophils # 0.1 10^3/uL (0.0-0.8); Eosinophils % 1.1 %; Hematocrit 47.3 % (42.0-52.0); Lymphocytes # 1.9 10^3/uL (0.8-4.8); Lymphocytes % 22.6 %; Mean Corpuscular HGB Conc 31.7 g/dL (30.0-36.0); Mean Corpuscular Hemoglobin 30.6 pg (28.0-34.0); Mean Corpuscular Volume 96.5 fL (80-94); Mean Platelet Volume 10.5 fL (7.4-10.4); Monocytes # 0.7 10^3/uL (0.2-0.9); Monocytes % 8.2 %; Neutrophils # 5.66 10^3/uL (1.8-7.7); Neutrophils % 66.8 %; Nucleated Red Blood Cells % 0 %; Platelet Count 198 10^3/cmm (130-400); Red Cell Distribution Width 13.4 % (12.1-15.1); White Blood Count 8.5 10^3/uL (4.0-10.0)
[2020-07-14 07:11] LABS: Blood Urea Nitrogen 14 mg/dL (6-20); Calcium 8.9 mg/dL (8.5-10.5); Carbon Dioxide 22 mmol/L (22-29); Chloride 103 mmol/L (98-107); Glomerular Filtration Rate 62.2 mL/min (90-130); Glucose 82 mg/dL (65-115); Osmolality Calculated 280 mOsm/kg (285-295); Sodium 135 mmol/L (136-145)
[2020-07-14 07:14] LABS: Anion Gap 14.4 (5-19); Potassium 4.4 mmol/L (3.5-5.1)
[2020-07-14] MEDS: pantoprazole DR 40 mg Tablet PO (08:47)
[2020-07-14] MEDS: aspirin 81 mg EC Tablet PO (08:47)
[2020-07-14] MEDS: clopidogrel 75 mg Tablet PO (08:47)
--- NOTE | 2020-07-14 12:43 | P.PN_ITS ---
Subjective Subjective: Interval history: Denies any complaint denies shortness of breath or chest pain overall is feeling much better. Medications: Reviewed: Yes Vitals/I&O/Wt Last Vital Signs Temp 98.2 F 07/14/20 11:09 Pulse 86 07/14/20 11:09 Resp 27 H 07/14/20 11:09 BP 154/97 07/14/20 11:09 Pulse Ox 97 07/14/20 07:18 07/13/20 07/14/20 07/14/20 22:59 06:59 14:59 Intake Total 560 / 560 1602.5 / 2162.5 600 / 600 Output Total 400 / 400 875 / 1275 Balance 160 / 160 727.5 / 887.5 600 / 600 Physical Exam Narrative: EXAM NARRATIVE: GENERAL: Patient is alert, awake and oriented x3. NECK: No jugular vein distension. HEENT: No cyanosis. No icterus. No pallor. HEART: Regular S1 and S2. No murmur, rub or gallop. LUNGS: Clear to auscultate bilaterally. ABDOMEN: Soft, nontender and nondistended. Positive bowel sounds. No guarding, rebound or tenderness. CENTRAL NERVOUS SYSTEM: Grossly nonfocal. EXTREMITIES: Lower extremities with trace edema bilaterally. Const: COMMON NORMALS: alert Resp: COMMON NORMALS: clear to auscultation bilaterally AUSCULTATION: clear to auscultation bilaterally Neuro: SENSORIUM/ORIENTATION: Yes alert Data : 07/14/20 02:46 07/14/20 02:46 A&P Assessment and plan (1) Elevated troponin: S/p coronary angiogram showed significant mid 75% hazy stenosis of the LAD treated with single drug-eluting stent postdilated with noncompliant balloon. Excellent angiographic result was achieved. Continue aspirin statin beta- tyler add clopidogrel. Status: Acute (2) Supraventricular tachycardia: Stable in sinus rhythm. Added beta-tyler. Continue to monitor Status: Acute Attestations Medical Necessity Statement*: Patient require continuation of hospitalization for above defined care Coding Level of Care Code Established Pt Acute Host And Hostess for Oraliag Fwd Patient Type Established History Detailed Exam Detailed Medical Decision Making Moderate Complexity Diagnoses Elevated troponin R77.8 Supraventricular tachycardia I47.1
--- NOTE | 2020-07-14 13:08 | P.DS_ITS ---
Discharge Providers Date of Admission: 07/12/20 12:47 Date of Discharge: July 14, 2020 Attending Provider at Admission: Angela Lincoln MD Attending Provider at Discharge: Angela Lincoln MD Primary Care Provider: Mayo Norton MD Diagnoses at Discharge Discharge Diagnosis (1) Supraventricular tachycardia: Status: Acute (2) NSTEMI (non-ST elevated myocardial infarction): Status: Acute Reason for Visit Reason for Visit: SVT Hospital Course Hospital Course Sam Hutson is a 59 year old male who presented with c/o chest discomfort, palpitations, found to have SVT by EMS, resolved with valsalva maneuver, sinus rhythm by arrival at ER,. Troponin series with signifcant delta ~50 at 2 and 6 hr. continued to have intermittent chest pain and was taken to the Con[facility] Techn[facility] on 07/13/2020. Coronary angiogram showed proximal LAD significant stenosis which was treated with single drug-eluting stent. Chest pain is now resolved. He is being discharged today in stable condition with recommendation to follow-up with cardiology in 1 week. No further arrhythmias were noted during course of admission. Physical Exam Narrative: EXAM NARRATIVE: GEN: Awake, alert and oriented, no acute distress CVS: S1S2 N RS: CTA B/L Abd: Soft, nt/nd , bs+ FREIGHT HANDLER: no focal neuro deficits Discharge Data Data Completed and Pending: Completed Studies During Hospitalization Category Date Time Status XR chest 1V mary beth ble [id number] Stat Exams 07/12/20 09:01 Completed CV echo complete* [id number] Routine Ultrasound 07/13/20 05:00 Completed Pending at discharge Category Date Time Status TELECOMMUNICATION OPERATOR request for service Routin e Exams 07/13/20 07:31 Ordered Labs from last 24 hours 07/14/20 07/14/20 07/13/20 02:46 02:46 22:37 WBC 8.5 RBC 4.90 Hgb 15.0 Hct 47.3 MCV 96.5 H MCH 30.6 MCHC 31.7 RDW 13.4 Plt Count 198 MPV 10.5 H Neut % (Auto) 66.8 Lymph % (Auto) 22.6 [place] % (Auto) 8.2 Eos % (Auto) 1.1 Baso % (Auto) 0.7 Neut # (Auto) 5.66 Lymph # (Auto) 1.9 [place] # (Auto) 0.7 Eos # (Auto) 0.1 Baso # (Auto) 0.1 Nucleated RBC % (a uto) 0 Nucleated RBCs # 0.0 APTT 30.7 D Sodium 135 L Potassium 4.4 Chloride 103 Carbon Dioxide 22 Anion Gap 14.4 BUN 14 Creatinine 1.2 GFR Calculation 62.2 L Glucose 82 Calculated Osmolal ity 280 L Calcium 8.9 07/13/20 20:18 WBC RBC Hgb Hct MCV MCH MCHC RDW Plt Count MPV Neut % (Auto) Lymph % (Auto) [place] % (Auto) Eos % (Auto) Baso % (Auto) Neut # (Auto) Lymph # (Auto) [place] # (Auto) Eos # (Auto) Baso # (Auto) Nucleated RBC % (a uto) Nucleated RBCs # APTT 82.2 H Sodium Potassium Chloride Carbon Dioxide Anion Gap BUN Creatinine GFR Calculation Glucose Calculated Osmolal ity Calcium Vitals: Last Vital Signs Temp 98.2 F 07/14/20 11:09 Pulse 86 07/14/20 11:09 Resp 27 H 07/14/20 11:09 BP 154/97 07/14/20 11:09 Pulse Ox 97 07/14/20 07:18 Discharge Plan Discharge Patient Disposition: Home Condition: Stable Prescriptions: New atorvastatin 40 mg Tablet 80 mg PO BEDTIME Qty: 90 RF: 4 clopidogrel 75 mg Tablet 75 mg PO DAILY Qty: 90 RF: 4 aspirin 81 mg Tablet,Delayed Release (Dr/Ec) 81 mg PO DAILY Qty: 90 RF: 5 metoprolol succinate 25 mg capsule,sprinkle,ER 24hr 25 mg PO DAILY Qty: 30 RF: 4 lisinopril 5 mg tablet 5 mg PO DAILY Qty: 30 RF: 4 pantoprazole 40 mg Tablet,Delayed Release (Dr/Ec) 40 mg PO DAILY 30 Days Qty: 30 RF: 0 Continued (DME) Sole Supports Custom Orthotics See Rx Instructions .Route .MEDSUPPLY Qty: 1 RF: 0 (DME) Cam boot See Rx Instructions .Route .MEDSUPPLY Qty: 1 RF: 0 Discontinued Aleve 220 mg Tablet 220 mg PO Q12H PRN (Reason: Pain) RF: 0 Discharge Orders: Discharge Order (Routine); Ordered 07/14/20 Ordered By: Olaf Wilder Referrals: Olaf Wilder MD [Physician] - 3 months ([facility] will be calling to set up a cardiology followup with Dr. Wilder to be seen in 3 months. If you don't hear from them by Thursday, please give them a call. Thank you ) Jerrica Flynn FNP [Nurse Practitioner] - 1 week ([facility] will be calling to set up a Post procedure followup with ELEAZAR Armstrong to be seen in 1 week. If you don't hear from them by Thursday, please give them a call. Thank you ) Discharge Diet: Cardiac and Low Cholesterol Patient Instructions: Metoprolol (By mouth), Lisinopril (By mouth), Aspirin (By mouth), Atorvastatin (By mouth), Clopidogrel (By mouth), Opioid Safety Activity Restrictions/Additional Instructions: Follow-up with Jerrica Flynn in 7 days, follow-up with Dr. Wilder in 3 months continue clopidogrel aspirin statin beta-tyler for at least 1 year Discharge Attestations Time Spent in Discharge Care*: less than 30 min Quality Metrics Clinical Quality Measures During this hospital stay, did patient experience: AMI Clinical Trial Participant: No Contraindication to aspirin (AMI): Aspirin given Contraindication to statin: Statin prescribed Contraindication to PCI: PCI performed Contraindication to Fibrinolytics: Fibrinolytics given Coding Level of Care Code Acute [facility] note Diagnoses Supraventricular tachycardia I47.1 NSTEMI (non-ST elevated myocardial infarction) I21.4
--- NOTE | 2020-07-14 14:21 | PC.NURSE ---
discharge instructions given and explained.pt and spouse verb understanding of instructions.discharged via w/c to exit at this time.
== END 2020-07-14 14:24 | disposition home or self-care (01) | DRG 247 ==
LOC: ER 09:41 → ICU 13:28 → CSU 07-13 17:50
PROVIDERS: Internal Medicine Cardiovascular Disease; Admitting Provider Student in an Organized Health Care Education/Training Program; Emergency Provider Family Medicine; PCP Family Medicine; Visit Provider Student in an Organized Health Care Education/Training Program
PROC: 027034Z Dilation of Coronary Artery, One Artery with Drug-eluting Intraluminal Device, Percutaneous Approach (ICD-10-PCS; principal; 2020-07-13 15:00)
PROC: 027034Z Dilation of Coronary Artery, One Artery with Drug-eluting Intraluminal Device, Percutaneous Approach (ICD-10-PCS; 2020-07-13 15:00)
DX: I21.4 Non-ST elevation (NSTEMI) myocardial infarction (principal); Z68.41 Body mass index [BMI] 40.0-44.9, adult; F17.210 Nicotine dependence, cigarettes, uncomplicated; F17.220 Nicotine dependence, chewing tobacco, uncomplicated; I25.10 Atherosclerotic heart disease of native coronary artery without angina pectoris; E66.9 Obesity, unspecified
CPT/HCPCS: 36415; 71045; 80048; 80053; 82550; 84484; 85025; 85347; 85730; 93005; 93306; 93454; 96372; 99285; C1725; C1769; C1874; C1887; C1894; C9600; J0153; J1644; J1650; J2250; J3010; J3490; J7030; Q0163; Q9967

== ENCOUNTER → 2020-07-19 09:40 | Outpatient (BNVA) | payer OTHER, SELFPAY | PROVIDERS: PCP Family Medicine; Visit Provider Nurse Practitioner Family | DX: I25.10 Atherosclerotic heart disease of native coronary artery without angina pectoris (principal); Z95.5 Presence of coronary angioplasty implant and graft | CPT/HCPCS: 80048 ==

== ENCOUNTER → 2020-09-25 10:53 | Outpatient (BNVA) | payer OTHER, SELFPAY | PROVIDERS: PCP Family Medicine; Visit Provider Nurse Practitioner Family | DX: J06.9 Acute upper respiratory infection, unspecified (principal); Z20.822 Contact with and (suspected) exposure to COVID-19 | CPT/HCPCS: 87635 ==

== ENCOUNTER → 2021-06-07 07:53 | Outpatient (BNVA) | payer OTHER, SELFPAY | PROVIDERS: PCP Family Medicine; Visit Provider Internal Medicine Cardiovascular Disease | DX: E78.5 Hyperlipidemia, unspecified (principal); I47.1 Supraventricular tachycardia; I25.10 Atherosclerotic heart disease of native coronary artery without angina pectoris; I10 Essential (primary) hypertension | CPT/HCPCS: 36415; 80061; 80076 ==

== ENCOUNTER → 2021-10-10 15:49 | Outpatient (BNVA) | payer OTHER, SELFPAY | PROVIDERS: Visit Provider Family Medicine | DX: E78.5 Hyperlipidemia, unspecified (principal); G47.30 Sleep apnea, unspecified | CPT/HCPCS: 80053; 85025 ==

== ENCOUNTER → 2022-01-09 09:26 | Outpatient (BNVA) | payer OTHER, SELFPAY | PROVIDERS: PCP Family Medicine; Visit Provider Family Medicine | DX: I10 Essential (primary) hypertension (principal); R41.3 Other amnesia | CPT/HCPCS: 80048; 84443 ==

== ENCOUNTER 2022-04-17 19:32 | Emergency (ER) | payer OTHER, SELFPAY ==
--- NOTE | 2022-04-17 19:37 | XRR_ITS ---
PROCEDURE INFORMATION: Exam: XR Chest Exam date and time: 04/17/2022 7:57 PM Age: 61 years old Clinical indication: Other: Palpitations; Prior surgery TECHNIQUE: Imaging protocol: Radiologic exam of the chest. Views: 1 view. COMPARISON: CR XR chest 1V portable [id number] 07/12/2020 9:13 AM FINDINGS: Lungs: No consolidation. Mild nodular appearance below the right hilum likely related to vascular appearance the different in appearance than previous exam. Pleural spaces: Unremarkable. No pleural effusion. No pneumothorax. Heart/Mediastinum: Mild left ventricular enlargement. Bones/joints: Unremarkable. Other findings: No significant change from prior exam. XR/XR chest 1V portable [id number] IMPRESSION: 1. Mild left ventricular enlargement. 2. Mild nodular appearance below the right hilum is likely related to appearance of vessels though appearing different from prior exam and therefore suggest follow-up CT to exclude underlying pulmonary nodule.
[2022-04-17 20:00] LABS: Basophils # 0.1 10^3/uL (0.0-0.1); Basophils % 0.8 %; Eosinophils # 0.2 10^3/uL (0.0-0.8); Eosinophils % 1.7 %; Hematocrit 56.3 % (42.0-52.0); Hemoglobin 16.7 g/dL (11.7-16.6); Lymphocytes # 4.7 10^3/uL (0.8-4.8); Lymphocytes % 38.8 %; Mean Corpuscular HGB Conc 29.7 g/dL (30.0-36.0); Mean Corpuscular Hemoglobin 30.1 pg (28.0-34.0); Mean Corpuscular Volume 101.6 fl (80-94); Mean Platelet Volume 9.9 fL (7.4-10.4); Monocytes # 1.2 10^3/uL (0.2-0.9); Monocytes % 9.6 %; Neutrophils # 5.91 10^3/uL (1.8-7.7); Neutrophils % 48.8 %; Nucleated Red Blood Cells % 0 %; Platelet Count 236 10^3/cmm (130-400); Red Blood Count 5.54 10^6/uL (4.1-5.3); Red Cell Distribution Width 13.5 % (12.1-15.1); White Blood Count 12.1 10^3/uL (4.0-10.0)
--- NOTE | 2022-04-17 20:03 | ECG_ITS ---
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 Measurements Intervals [employer] Rate: 160 P: 0 [place]: 0 QRS: -16 QRSD: 130 T: 63 QT: 276 QTc: 451 Interpretive Statements ATRIAL FIBRILLATION WITH RVR MODERATE INTRAVENTRICULAR CONDUCTION DELAY [110+ ms QRS DURATION] MODERATE ST DEPRESSION [0.05+ mV ST DEPRESSION] Compared to ECG 07/12/2020 16:49:53 Intraventricular conduction delay now present ST (T wave) deviation now present Sinus rhythm no longer present Incomplete right bundle-branch block no longer present Electronically Signed On 04-18-2022 7:53:39 RADAR MECHANIC by Khalida Ybarra M.D. [id number]
[2022-04-17 20:11] VITALS: BP 122/95; PULSE 93; RESP 21; O2SAT 97
[2022-04-17 20:12] VITALS: BP 109/89; PULSE 161; RESP 16; TEMP 36.2; O2SAT 96; BMI 43.6
--- NOTE | 2022-04-17 20:17 | ED_ITS ---
HPI - Arrhythmia/Palpitations General: Chief Complaint: Arrhythmia/Palpitations Stated Complaint: Pulse Racing Time Seen by Provider: 04/17/22 20:08 Source: patient Mode of arrival: ambulatory Limitations: no limitations History of Present Illness: 61-year-old male who has a history of SVT he states he has been in the past and some typically is able to convert himself he states that today had been lasting for over an hour and he could feel the palpitations denies any pain denies any shortness of breath his EKG here does show SVT but when I walked in the room he states that he tried a breathing man euver and it actually converted himself his heart rate is now in the 90s he states he feels much improved he has no symptoms currently. He states he was on Cardizem and he had ran out 2 days ago on has not been taking it. Associated symptoms: Deny nausea or vomiting Review of Systems Const: Denies: fever(s), chills, body aches or change in appetite Eyes: Denies: blurry vision or eye discomfort ENMT: Denies: throat pain or dental pain Card: Reports: palpitations Resp: Denies: dyspnea GI: Denies: abdominal pain, nausea, vomiting or diarrhea : Denies: dysuria Musc: Denies: neck pain or back pain Skin/Breast: Denies: rash Neuro: Denies: headache(s) Psych: Denies: depression Bobby/Lymph: Denies: easy bruising All/Imm: Denies: urticaria PFSH ED PFSH: Medical History Coronary artery disease Fatigue SVT (supraventricular tachycardia) Surgical History Hx of heart artery stent Family History Grandfather CAD (coronary artery disease) Suicide Father Cancer Mother Diabetes Lung disease Grandmother Stroke Denies family history of Clotting disorder Dementia Chronic kidney disease (CKD) Anesthesia complication Bleeding disorder Social History Smoking and tobacco status: former smoker Alcohol intake: never Desire information about alcohol rehabilitation?: No Desire information about substance/drug rehabilitation?: No Adopted: No Lives independently: Yes Physical Exam Const: COMMON NORMALS: no acute distress, patient oriented x3 and healthy appearing HENMT: COMMON NORMALS: normocephalic and atraumatic HEAD & SCALP: normocephalic and atraumatic Eye: COMMON NORMALS: Equal, round and reactive pupils present and EOMs intact bilaterally PUPIL: Yes Equal, round and reactive pupils present Neck/C-Spine: COMMON NORMALS: full ROM and supple Chest: COMMONS NORMALS: normal inspection of the chest and normal palpation of entire chest wall Resp: COMMON NORMALS: normal respiratory effort, No retractions, No use of accessory muscles and clear to auscultation bilaterally AUSCULTATION: clear to auscultation bilaterally Cardio: COMMON NORMALS: regular rate, regular rhythm and No murmurs present (Cardio) RATE: regular rate RHYTHM: regular rhythm GI: COMMON NORMALS: Normal to inspection, nondistended, normoactive bowel sounds present, Soft to palpation, non-tender and no masses PALPATION: Yes Soft to palpation Extremity: COMMON NORMALS: normal to inspection and full ROM Neuro: COMMON NORMALS: patient oriented x3, moves all extremities and no focal motor deficits Psych: COMMON NORMALS: mental status grossly normal, Normal thought process present and cooperative THOUGHT PROCESS: Normal thought process present Skin: COMMON NORMALS: no rashes or lesions noted and no wounds GENERAL SKIN EXAM: no rashes or lesions noted Course Vital Signs: Vital signs: Vital Signs Temperature 97.2 F L 04/17/22 20:12 Pulse Rate 161 H 04/17/22 20:12 Respiratory Rate 16 04/17/22 20:12 Blood Pressure 109/89 04/17/22 20:12 Pulse Oximetry 96 04/17/22 20:12 Oxygen Delivery Me thod 04/17/22 20:12 MDM - Arrhythmia/Palpitations Medical Decision Making Patient presents here with SVT he converted himself here he has been asymptomatic blood work is normal he is stable for discharge we will restart him on his Cardizem he is to follow-up with PCP and return if worsening. Lab Data 04/17/22 19:50 04/17/22 19:50 Laboratory Results WBC 12.1 10^3/uL (4.0-10.0) H 04/17/22 19:50 RBC 5.54 10^6/uL (4.1-5.3) H 04/17/22 19:50 Hgb 16.7 g/dL (11.7-16.6) H 04/17/22 19:50 Hct 56.3 % (42.0-52.0) H 04/17/22 19:50 MCV 101.6 fl (80-94) H 04/17/22 19:50 MCH 30.1 pg (28.0-34.0) 04/17/22 19:50 MCHC 29.7 g/dL (30.0-36.0) L 04/17/22 19:50 RDW 13.5 % (12.1-15.1) 04/17/22 19:50 Plt Count 236 10^3/cmm (130-400) 04/17/22 19:50 MPV 9.9 fL (7.4-10.4) 04/17/22 19:50 Neut % (Auto) 48.8 % 04/17/22 19:50 Lymph % (Auto) 38.8 % 04/17/22 19:50 [place] % (Auto) 9.6 % 04/17/22 19:50 Eos % (Auto) 1.7 % 04/17/22 19:50 Baso % (Auto) 0.8 % 04/17/22 19:50 Neut # (Auto) 5.91 10^3/uL (1.8-7.7) 04/17/22 19:50 Lymph # (Auto) 4.7 10^3/uL (0.8-4.8) 04/17/22 19:50 [place] # (Auto) 1.2 10^3/uL (0.2-0.9) H 04/17/22 19:50 Eos # (Auto) 0.2 10^3/uL (0.0-0.8) 04/17/22 19:50 Baso # (Auto) 0.1 10^3/uL (0.0-0.1) 04/17/22 19:50 Nucleated RBC % (auto) 0 % 04/17/22 19:50 Nucleated RBCs # 0.0 /100WBC 04/17/22 19:50 Sodium 138 mmol/L (136-145) 04/17/22 19:50 Potassium 4.6 mmol/L (3.5-5.1) 04/17/22 19:50 Chloride 103 mmol/L (98-107) 04/17/22 19:50 Carbon Dioxide 24 mmol/L (22-29) 04/17/22 19:50 Anion Gap 15.6 (5-19) 04/17/22 19:50 BUN 14 mg/dL (8-23) 04/17/22 19:50 Creatinine 1.5 mg/dL (0.7-1.2) H 04/17/22 19:50 GFR Calculation 47.7 mL/min (90-130) L 04/17/22 19:50 Glucose 91 mg/dL (65-115) 04/17/22 19:50 Calculated Osmolality 286 mOsm/kg (285-295) 04/17/22 19:50 Calcium 9.2 mg/dL (8.5-10.5) 04/17/22 19:50 Total Bilirubin 0.3 mg/dL (0.15-1.2) 04/17/22 19:50 AST 23 U/L (0-40) 04/17/22 19:50 ALT 29 U/L (0-41) 04/17/22 19:50 Alkaline Phosphatase 101 U/L (40-130) 04/17/22 19:50 Total Protein 7.3 g/dL (6.6-8.7) 04/17/22 19:50 Albumin 4.4 g/dL (3.5-5.2) 04/17/22 19:50 Globulin 2.9 g/dL (1.3-4.6) 04/17/22 19:50 EKG Data EKG 1: I personally reviewed and interpreted this EKG as follows: EKG interpretation date: 04/17/22 EKG interpretation time: 20:03 Interpretation: svt hr [address] or t wave abnormalities qrs 130 qtc 365 EKG 2: I personally reviewed and interpreted this EKG as follows: EKG interpretation date: 04/17/22 EKG interpretation time: 20:26 Interpretation: nsr hr [address] or t wave abnormalities qrs 100 qtc 393 Discharge Plan Discharge Patient Disposition: Home Clinical Impression: SVT (supraventricular tachycardia) Condition: Stable Prescriptions: New Cardizem CD 120 mg capsule,extended release 24hr 60 mg PO DAILY Qty: 30 0RF No Action (DME) Sole Supports Custom Orthotics See Rx Instructions .Route .MEDSUPPLY Qty: 1 0RF Rx Instructions: As directed guaifenesin [Mucinex] 600 mg tablet extended release 12hr 600 mg PO Q12H PRN albuterol sulfate 90 mcg/actuation HFA aerosol inhaler 2 puff inhalation Q4H PRN miscellaneous medical supply Misc See Rx Instructions miscellaneous .COMPLEX Qty: 1 0RF Rx Instructions: CPAP supplies: mask, tubing, filters, headgear and other necessary supplies. aspirin 81 mg tablet,delayed release (DR/EC) 81 mg PO DAILY Qty: 90 3RF metoprolol succinate 50 mg tablet extended release 24 hr 50 mg PO DAILY Qty: 90 3RF rosuvastatin 20 mg tablet 20 mg PO DAILY Qty: 90 3RF lisinopril 5 mg tablet 5 mg PO DAILY Qty: 90 3RF Discharge Orders: Discharge ED (Routine); Ordered 04/17/22 Ordered By: Gary Torres Referrals: Rashel Augustine, [Primary Care Provider] - 1-3 days Discharge Diet: Advance as tolerated Discharge Activity: Resume usual activity Patient Instructions: Supraventricular Tachycardia (ED) Coding Level of Care Code ED Loan Officer for Olamide Howell
[2022-04-17 20:19] LABS: Alanine Aminotransferase 29 U/L (0-41); Albumin Level 4.4 g/dL (3.5-5.2); Alkaline Phosphatase 101 U/L (40-130); Aspartate Amino Transferase 23 U/L (0-40); Blood Urea Nitrogen 14 mg/dL (8-23); Calcium 9.2 mg/dL (8.5-10.5); Carbon Dioxide 24 mmol/L (22-29); Chloride 103 mmol/L (98-107); Globulin 2.9 g/dL (1.3-4.6); Glomerular Filtration Rate 47.7 mL/min (90-130); Glucose 91 mg/dL (65-115); Osmolality Calculated 286 mOsm/kg (285-295); Sodium 138 mmol/L (136-145); Total Bilirubin 0.3 mg/dL (0.15-1.2); Total Protein 7.3 g/dL (6.6-8.7)
[2022-04-17 20:29] LABS: Anion Gap 15.6 (5-19); Potassium 4.6 mmol/L (3.5-5.1)
== END 2022-04-17 20:43 | disposition home or self-care (01) ==
PROVIDERS: Emergency Provider Emergency Medicine; PCP Family Medicine
DX: I47.1 Supraventricular tachycardia (principal); Z79.82 Long term (current) use of aspirin; I25.10 Atherosclerotic heart disease of native coronary artery without angina pectoris; Z87.891 Personal history of nicotine dependence
CPT/HCPCS: 36415; 71045; 80053; 85025; 93005; 99285

== ENCOUNTER → 2022-07-08 15:35 | Outpatient (BNVA) | payer OTHER, SELFPAY | PROVIDERS: PCP Family Medicine; Visit Provider Family Medicine | DX: L81.9 Disorder of pigmentation, unspecified (principal) | CPT/HCPCS: 88304 ==

== ENCOUNTER 2022-12-24 12:41 | Outpatient (CLI) | payer OTHER, SELFPAY ==
--- NOTE | 2022-12-24 12:54 | XRR_ITS ---
PROCEDURE INFORMATION: Exam: XR Chest Exam date and time: 12/24/2022 1:17 PM Age: 62 years old Clinical indication: Abnormal findings; Abnormal radiologic exam of lung or chest; Prior surgery; Surgery date: 6+ months; Surgery type: Stents; Additional info: Hilar abnormality TECHNIQUE: Imaging protocol: Radiologic exam of the chest. Views: 2 views. COMPARISON: CR (CHEST, ) 04/17/2022 7:57 PM FINDINGS: Lungs: Hilar regions appear unremarkable with today's two-view chest. No nodular appearance is seen below the right hilum with today's exam as suggested with previous single-view exam. No consolidation. Pleural spaces: Unremarkable. No pleural effusion. No pneumothorax. Heart/Mediastinum: Cardiac size is within normal limits with today's two-view chest. Bones/joints: Mild spondylotic change thoracic spine. XR/XR chest 2V* [id number] IMPRESSION: No acute cardiopulmonary abnormality.
== END 2022-12-24 12:42 | disposition home or self-care (01) ==
PROVIDERS: PCP Family Medicine; Visit Provider Family Medicine
DX: R91.1 Solitary pulmonary nodule (principal)
CPT/HCPCS: 71046

== ENCOUNTER → 2023-03-12 11:36 | Outpatient (BNVA) | payer OTHER, SELFPAY | PROVIDERS: PCP Family Medicine; Visit Provider Registered Nurse Neonatal Intensive Care | DX: R82.998 Other abnormal findings in urine (principal); R39.9 Unspecified symptoms and signs involving the genitourinary system; N39.0 Urinary tract infection, site not specified | CPT/HCPCS: 81000; 87086 ==

== ENCOUNTER → 2023-03-17 12:01 | Outpatient (BNVA) | payer OTHER, SELFPAY | PROVIDERS: PCP Family Medicine; Visit Provider Family Medicine | DX: N39.0 Urinary tract infection, site not specified (principal); I10 Essential (primary) hypertension | CPT/HCPCS: 81000 ==

== ENCOUNTER → 2023-06-01 14:02 | Outpatient (BNVA) | payer OTHER, SELFPAY | PROVIDERS: PCP Family Medicine; Visit Provider Family Medicine | DX: I10 Essential (primary) hypertension (principal); I25.119 Atherosclerotic heart disease of native coronary artery with unspecified angina pectoris; E78.5 Hyperlipidemia, unspecified; M25.561 Pain in right knee; G89.29 Other chronic pain; Z12.5 Encounter for screening for malignant neoplasm of prostate | CPT/HCPCS: 80053; 80061; G0103 ==

== ENCOUNTER 2024-03-27 14:40 | Emergency (ER) | payer MEDICARE, SELFPAY ==
--- NOTE | 2024-03-27 14:41 | XRR_ITS ---
PROCEDURE INFORMATION: Exam: XR Chest Exam date and time: 03/27/2024 3:00 PM Age: 63 years old Clinical indication: Cough and dyspnea; Additional info: Weakness TECHNIQUE: Imaging protocol: Radiologic exam of the chest. Views: 1 view. COMPARISON: CR XR chest 2V* [id number] 12/24/2022 1:17 PM FINDINGS: Lungs: No focal lung consolidation. Pleural spaces: No pleural effusion. No pneumothorax. Heart/Mediastinum: No cardiomegaly. Bones/joints: No acute bony abnormality. XR/XR chest 1V portable [id number] IMPRESSION: No focal lung consolidation.
[2024-03-27 14:42] VITALS: BP 147/84; PULSE 100; RESP 18; TEMP 36.7; O2SAT 96; BMI 48.7
--- NOTE | 2024-03-27 14:48 | CTR_ITS ---
PROCEDURE INFORMATION: Exam: CT Head Without Contrast Exam date and time: 03/27/2024 2:56 PM Age: 63 years old Clinical indication: Stroke-like symptoms; Other: Weakness TECHNIQUE: Imaging protocol: Computed tomography of the head without contrast. Radiation optimization: All CT scans at this facility use at least one of these dose optimization techniques: automated exposure control; mA and/or kV adjustment per patient size (includes targeted exams where dose is matched to clinical indication); or iterative reconstruction. Other technique: STROKE PROTOCOL was implemented. COMPARISON: No relevant prior studies available. RADIATION DOSE METRICS: Total DLP (mGy-cm): 1177.78 FINDINGS: Brain: Low attenuation within the left tad may be artifactual, however, acute infarct cannot be excluded. No acute intracranial hemorrhage. Cerebral ventricles: The ventricles and sulci are normal in size and shape for the patient's stated age. Paranasal sinuses: Mucous retention cyst versus polyp in the right maxillary sinus measuring up to 1.6 cm. Mastoid air cells: Visualized mastoid air cells are well aerated. Bones: No acute calvarial fracture. Soft tissues: Visualized soft tissues are unremarkable. CT/CT head thrombolytic [id number] IMPRESSION: Low attenuation within the left tad may be artifactual, however, acute infarct cannot be excluded. If symptoms persist, consider further evaluation with MRI, if there are no contraindications to obtaining a MRI scan. ASSESSMENT: ASPECTS ([place] Stroke Program Early CT Score) is 10.
--- NOTE | 2024-03-27 14:48 | CTR_ITS ---
PROCEDURE INFORMATION: Exam: CTA Head With Contrast, Arteriography Exam date and time: 03/27/2024 2:58 PM Age: 63 years old Clinical indication: Dizziness and giddiness and weakness; Additional info: CVA TECHNIQUE: Imaging protocol: Computed tomographic angiography of the head with contrast. Exam focused on the arteries. 3D rendering (Not supervised by radiologist): MIP and/or 3D reconstructed images were created by the technologist. Radiation optimization: All CT scans at this facility use at least one of these dose optimization techniques: automated exposure control; mA and/or kV adjustment per patient size (includes targeted exams where dose is matched to clinical indication); or iterative reconstruction. Contrast material: OMNIPAQUE 350; Contrast volume: 100 ml; Contrast route: INTRAVENOUS (IV); COMPARISON: CT head thrombolytic [id number] 03/27/2024 2:56 PM RADIATION DOSE METRICS: Total DLP (mGy-cm): 650.78 FINDINGS: ANTERIOR CIRCULATION: Right internal carotid artery: Mild calcified plaque. No significant stenosis or aneurysm is seen involving the petrous, cavernous, or supraclinoid right internal caroid artery. Right middle cerebral artery: No occlusion or significant stenosis. No aneurysm. Right anterior cerebral artery: No occlusion or significant stenosis. No aneurysm. Left internal carotid artery: Moderate calcified plaque. No significant stenosis or aneurysm is seen involving the petrous, cavernous, or supraclinoid left internal caroid artery. Left middle cerebral artery: No occlusion or significant stenosis. No aneurysm. Left anterior cerebral artery: No occlusion or significant stenosis. No aneurysm. POSTERIOR CIRCULATION: Right vertebral artery: Intradural right vertebral artery demonstrates no occlusion or significant stenosis. No aneurysm. Left vertebral artery: Intradural left vertebral artery demonstrates no occlusion or significant stenosis. No aneurysm. Basilar artery: No occlusion or significant stenosis. No aneurysm. Right posterior cerebral artery: No occlusion or significant stenosis. No aneurysm. Left posterior cerebral artery: No occlusion or significant stenosis. No aneurysm. PROCEDURE INFORMATION: Exam: CTA Neck With Contrast Exam date and time: 03/27/2024 2:58 PM Age: 63 years old Clinical indication: Dizziness and giddiness and weakness; Additional info: CVA TECHNIQUE: Imaging protocol: Computed tomographic angiography of the neck with contrast. Exam focused on the cervical segments of the vasculature. 3D rendering (Not supervised by radiologist): MIP and/or 3D reconstructed images were created by the technologist. Radiation optimization: All CT scans at this facility use at least one of these dose optimization techniques: automated exposure control; mA and/or kV adjustment per patient size (includes targeted exams where dose is matched to clinical indication); or iterative reconstruction. Contrast material: OMNIPAQUE 350; Contrast volume: 100 ml; Contrast route: INTRAVENOUS (IV); COMPARISON: CT head thrombolytic [id number] 03/27/2024 2:56 PM RADIATION DOSE METRICS: Total DLP (mGy-cm): 650.47 FINDINGS: Right common carotid artery: No stenosis. No dissection or occlusion. Right internal carotid artery: Mild calcified plaque is seen involving the right carotid bulb. No significant stenosis seen by NASCET criteria. No dissection or occlusion. Right external carotid artery: No occlusion or stenosis of the origin. Left common carotid artery: No stenosis. No dissection or occlusion. Left internal carotid artery: No significant stenosis seen by NASCET criteria. No dissection or occlusion. Left external carotid artery: No occlusion or stenosis of the origin. Right vertebral artery: No cervical vertebral artery stenosis. No dissection or occlusion. Left vertebral artery: No cervical vertebral artery stenosis. No dissection or occlusion. Soft tissues: Bilateral palatine tonsilliths. Bones/joints: No acute bony abnormality. CT/CT angio headneck* [id number] IMPRESSION: No intracranial large vessel arterial stenosis or occlusion. IMPRESSION: No significant cervical arterial stenosis or occlusion. REFERENCES: NASCET CRITERIA. The degree of stenosis in the cervical segment of the internal carotid artery is based on NASCET criteria. Normal is no stenosis. Mild is less than 50% stenosis. Moderate is 50-69% stenosis. Severe is 70% to 99% stenosis. Total occlusion is no detectable patent lumen.
--- NOTE | 2024-03-27 14:49 | W.ED.WEAKNES ---
HPI - Weakness General: Chief complaint: Weakness Stated complaint: weakness; falls Time Seen by Provider: 03/27/24 14:43 Source: patient and EMS Mode of arrival: EMS Limitations: no limitations History of Present Illness: 63-year-old male who states that he has been having increasing weakness. He states he woke up 3 AM has been having a hard time walking and had a fall today. He states he has weakness bilateral lower extremities and feels unsteady when he walks. Last known normal was last night when he went to sleep. He has had a slight headache he denies any chest pain denies any fevers Associated symptoms: Reports headache(s); Denies chest pain, chills, fever(s), nausea or vomiting Review of Systems Const: Denies: fever(s), chills, body aches or change in appetite ENMT: Denies: throat pain or dental pain Card: Denies: chest pain Resp: Denies: dyspnea GI: Denies: abdominal pain, nausea, vomiting or diarrhea Musc: Reports: muscle weakness; Denies: neck pain or back pain Skin/Breast: Denies: rash Neuro: Reports: headache(s) and weakness in extremities [facility] PFSH: Medical History Fatigue SVT (supraventricular tachycardia) Coronary artery disease Surgical History Hx of heart artery stent Family History Grandfather CAD (coronary artery disease) Suicide Father Cancer Mother Diabetes Lung disease Grandmother Stroke Denies family history of Clotting disorder Dementia Chronic kidney disease (CKD) Anesthesia complication Bleeding disorder Social History Smoking and tobacco/nicotine status: never used tobacco/nicotine Alcohol intake: never Substance/Drug Use: never Adopted: No Lives independently: Yes Physical Exam Const: COMMON NORMALS: patient oriented x3 HENMT: COMMON NORMALS: normocephalic and atraumatic HEAD & SCALP: normocephalic and atraumatic Eye: COMMON NORMALS: Equal, round and reactive pupils present and EOMs intact bilaterally PUPIL: Yes Equal, round and reactive pupils present Neck/C-Spine: COMMON NORMALS: full ROM and supple Chest: COMMONS NORMALS: normal inspection of the chest and normal palpation of entire chest wall Resp: COMMON NORMALS: normal respiratory effort, No retractions, No use of accessory muscles and clear to auscultation bilaterally AUSCULTATION: clear to auscultation bilaterally Cardio: COMMON NORMALS: regular rate, regular rhythm and No murmurs present (Cardio) RATE: regular rate RHYTHM: regular rhythm GI: COMMON NORMALS: Normal to inspection, nondistended, normoactive bowel sounds present, Soft to palpation, non-tender and no masses PALPATION: Yes Soft to palpation Extremity: COMMON NORMALS: normal to inspection and full ROM Neuro: COMMON NORMALS: patient oriented x3, moves all extremities and no focal motor deficits Psych: COMMON NORMALS: mental status grossly normal, Normal thought process present and cooperative THOUGHT PROCESS: Normal thought process present Skin: COMMON NORMALS: no rashes or lesions noted and no wounds GENERAL SKIN EXAM: no rashes or lesions noted Course Vital Signs: Vital signs: Vital Signs Temperature 98.1 F 03/27/24 14:42 Pulse Rate 98 03/27/24 17:27 Respiratory Rate 18 03/27/24 15:33 Blood Pressure 151/86 03/27/24 17:27 Pulse Oximetry 98 03/27/24 17:27 Oxygen Delivery Me thod Room Air 03/27/24 16:12 MDM - Weakness Medical Decision Making Patient presents with generalized weakness along with not feeling well he did test positive for influenza likely causing his symptoms that he is having some hard times walking CTA showed no acute stroke he is able to ambulate now and feels improved I did offer him admission due to his weakness he states he feels improved like to go home informed to follow-up with PCP and return if worsening he understands agrees to plan Medical Records I reviewed the patient's medical records. Lab Data I reviewed the patient's lab results. 03/27/24 14:50 03/27/24 14:50 Radiology Impressions Chest X-Ray 03/27/24 14:41 IMPRESSION: No focal lung consolidation. Head CT 03/27/24 14:48 IMPRESSION: Low attenuation within the left tad may be artifactual, however, acute infarct cannot be excluded. If symptoms persist, consider further evaluation with MRI, if there are no contraindications to obtaining a MRI scan. ASSESSMENT: ASPECTS ([place] Stroke Program Early CT Score) is 10. ADDENDUM: 03/27/24 1511 ADDENDUM: THIS REPORT CONTAINS FINDINGS THAT MAY BE CRITICAL TO PATIENT CARE. The findings were verbally communicated via telephone conference with MANUEL MERA at 3:09 PM [employer] on 03/27/2024. The findings were acknowledged and understood. Head/Neck CTA 03/27/24 14:48 IMPRESSION: No intracranial large vessel arterial stenosis or occlusion. IMPRESSION: No significant cervical arterial stenosis or occlusion. REFERENCES: NASCET CRITERIA. The degree of stenosis in the cervical segment of the internal carotid artery is based on NASCET criteria. Normal is no stenosis. Mild is less than 50% stenosis. Moderate is 50-69% stenosis. Severe is 70% to 99% stenosis. Total occlusion is no detectable patent lumen. Laboratory Results WBC 6.23 10^3/uL (3.29-11.43) 03/27/24 14:50 RBC 4.83 10^6/uL (3.85-5.65) 03/27/24 14:50 Hgb 14.70 g/dL (11.27-16.99) 03/27/24 14:50 Hct 46.4 % (37-53) 03/27/24 14:50 MCV 96.1 fl (82-101) 03/27/24 14:50 MCH 30.4 pg (27-33) 03/27/24 14:50 MCHC 31.7 g/dL (30-55) 03/27/24 14:50 RDW 14.5 % (12.1-15.1) 03/27/24 14:50 Plt Count 147 10^3/cmm (157-399) L 03/27/24 14:50 MPV 9.6 fL (7.4-10.4) 03/27/24 14:50 Neut % (Auto) 74.3 % 03/27/24 14:50 Lymph % (Auto) 10.1 % 03/27/24 14:50 [place] % (Auto) 14.0 % 03/27/24 14:50 Eos % (Auto) 0.3 % 03/27/24 14:50 Baso % (Auto) 0.8 % 03/27/24 14:50 Neut # (Auto) 4.63 10^3/uL (1.8-7.7) 03/27/24 14:50 Lymph # (Auto) 0.6 10^3/uL (0.8-4.8) L 03/27/24 14:50 [place]assen # (Auto) 0.9 10^3/uL (0.2-0.9) 03/27/24 14:50 Eos # (Auto) 0.0 10^3/uL (0.0-0.8) 03/27/24 14:50 Baso # (Auto) 0.1 10^3/uL (0.0-0.1) 03/27/24 14:50 Nucleated RBC % (auto) 0 % 03/27/24 14:50 Nucleated RBCs # 0.0 /100WBC 03/27/24 14:50 Sodium 130 mmol/L (136-145) L 03/27/24 14:50 Potassium 4.2 mmol/L (3.5-5.1) 03/27/24 14:50 Chloride 95 mmol/L (98-107) L 03/27/24 14:50 Carbon Dioxide 21 mmol/L (22-29) L 03/27/24 14:50 Anion Gap 18.2 (5-19) 03/27/24 14:50 BUN 13 mg/dL (8-23) 03/27/24 14:50 Creatinine 1.4 mg/dL (0.7-1.2) H 03/27/24 14:50 GFR Calculation 51.4 mL/min (90-130) L 03/27/24 14:50 Glucose 86 mg/dL (65-115) 03/27/24 14:50 POC Glucose 77 mg/dL (70-110) 03/27/24 14:51 Calculated Osmolality 269 mOsm/kg (285-295) L 03/27/24 14:50 Calcium 9.4 mg/dL (8.5-10.5) 03/27/24 14:50 Total Bilirubin 0.5 mg/dL (0.15-1.2) 03/27/24 14:50 AST 37 U/L (0-40) 03/27/24 14:50 ALT 30 U/L (0-41) 03/27/24 14:50 Alkaline Phosphatase 80 U/L (40-130) 03/27/24 14:50 Total Protein 7.2 g/dL (6.6-8.7) 03/27/24 14:50 Albumin 4.2 g/dL (3.5-5.2) 03/27/24 14:50 Globulin 3.0 g/dL (1.3-4.6) 03/27/24 14:50 Lipase 34 U/L (13-60) 03/27/24 14:50 Urine Color Yellow (Yellow) 03/27/24 15:45 Urine Appearance Clear (CLEAR) 03/27/24 15:45 Urine pH 5.5 (5-7) 03/27/24 15:45 Ur Specific [place] 1.073 (1.005-1.030) H 03/27/24 15:45 Urine Protein Negative (Negative) 03/27/24 15:45 Urine Glucose (UA) Negative (Normal) 03/27/24 15:45 Urine Ketones Negative (Negative) 03/27/24 15:45 Urine Blood 1+ (Negative) A 03/27/24 15:45 Urine Nitrate Negative (Negative) 03/27/24 15:45 Urine Bilirubin Negative (Negative) 03/27/24 15:45 Urine Urobilinogen 2.0 mg/dL (Negative) H 03/27/24 15:45 Ur Leukocyte Esterase Negative (Negative) 03/27/24 15:45 Urine RBC 3-5 /hpf (0-2) 03/27/24 15:45 Urine WBC 0-5 /hpf (0-5) 03/27/24 15:45 Ur Squamous Epith Cells 0-5 /hpf (0-5) 03/27/24 15:45 Amorphous Sediment Not Reportable 03/27/24 15:45 Urine Bacteria None seen /hpf (NONE) 03/27/24 15:45 Hyaline Casts 0-4 /lpf H 03/27/24 15:45 Coronavirus (PCR) Negative (Negative) 03/27/24 15:30 Influenza A (PCR) Positive (Negative) 03/27/24 15:30 Influenza Type B (PCR) Negative (Negative) 03/27/24 15:30 RSV (PCR) Negative (Negative) 03/27/24 15:30 All radiology interpretation(s) finalized by discharge EKG Data EKG 1: I personally reviewed and interpreted this EKG as follows: EKG interpretation date: 03/27/24 EKG interpretation time: 15:08 Interpretation: nsr hr [address] elevation qrs 106 qtc 391 Discharge Plan Discharge Patient Disposition: Home Clinical Impression: Influenza, Weakness Condition: Stable Prescriptions: No Action metoprolol succinate 50 mg tablet extended release 24 hr 50 mg PO DAILY Qty: 90 3RF aspirin 81 mg tablet,delayed release (DR/EC) 81 mg PO DAILY Qty: 90 3RF diltiazem HCl 120 mg capsule,extended release 24hr 120 mg PO DAILY Rx Instructions: Take 1 capsule by mouth once daily lisinopril 5 mg tablet 5 mg PO DAILY Rx Instructions: TAKE 1 TABLET BY MOUTH ONCE EVERY DAY rosuvastatin 20 mg tablet 20 mg PO DAILY Rx Instructions: Take 1 tablet by mouth once daily Discharge Orders: Discharge ED (Routine); Ordered 03/27/24 Ordered By: Manuel Mera Referrals: Rashel Augustine DO [Primary Care Provider] - Discharge Diet: Advance as tolerated Discharge Activity: Resume usual activity Patient Instructions: Influenza (ED) Coding Level of Care Code ED Continuous Improvement Consultant for Chg Fwd Related Data Home Medications Medication Instructions Recorded Confirmed diltiazem HCl 120 mg 120 mg PO DAILY 03/27/24 03/27/24 capsule,extended release 24 hr lisinopril 5 mg tablet 5 mg PO DAILY 03/27/24 03/27/24 rosuvastatin 20 mg tablet 20 mg PO DAILY 03/27/24 03/27/24 Previous Rx's Medication Instructions Recorded aspirin 81 mg tablet,delayed 81 mg PO DAILY #90 tabs 01/07/22 release metoprolol succinate 50 mg 50 mg PO DAILY #90 tabs 03/17/23 tablet,extended release 24 hr Allergies Allergy/AdvReac Type Severity Reaction Status Date / Time No Known Allergies Allergy Verified 03/24/24 13:05 NIH stroke score NIHSS Level Of Consciousness - 1a: 0 Level Of Consciousness Questions - 1b: Both Correct Level Of Consciousness Commands - 1c: Both Correct Best Gaze - 2: Normal Visual [place] - 3: No Visual Loss Facial Palsy - 4: Normal Motor Arm Right - 5: No Drift Motor Arm Left - 5: No Drift Motor Leg Right - 6: No Drift Motor Leg Left - 6: No Drift Limb Ataxia - 7: Absent Sensory - 8: Normal Best Language - 9: No Aphasia Dysarthia - 10: Normal Extinction And Inattention - 11: 0 Score Total Score: 0
[2024-03-27 14:55] LABS: Glucose Point of Care 77 mg/dL (70-110)
[2024-03-27 14:58] LABS: Basophils # 0.1 10^3/uL (0.0-0.1); Basophils % 0.8 %; Eosinophils % 0.3 %; Hematocrit 46.4 % (37-53); Lymphocytes # 0.6 10^3/uL (0.8-4.8); Lymphocytes % 10.1 %; Mean Corpuscular HGB Conc 31.7 g/dL (30-55); Mean Corpuscular Hemoglobin 30.4 pg (27-33); Mean Corpuscular Volume 96.1 fl (82-101); Mean Platelet Volume 9.6 fL (7.4-10.4); Monocytes # 0.9 10^3/uL (0.2-0.9); Neutrophils # 4.63 10^3/uL (1.8-7.7); Neutrophils % 74.3 %; Nucleated Red Blood Cells % 0 %; Platelet Count 147 10^3/cmm (157-399); Red Blood Count 4.83 10^6/uL (3.85-5.65); Red Cell Distribution Width 14.5 % (12.1-15.1); White Blood Count 6.23 10^3/uL (3.29-11.43)
--- NOTE | 2024-03-27 15:08 | ECG_ITS ---
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1960 Requested By: Gary Torres Order Number: [id number] Reading MD: TIM STEPHENS Measurements Intervals [place] Rate: 95 P: 8 AR: 200 QRS: -29 QRSD: 106 T: 13 QT: 338 QTc: 426 Interpretive Statements SINUS RHYTHM INFERIOR MYOCARDIAL INFARCTION , PROBABLY OLD [40+ ms Q WAVE AND/OR ST/T ABNORMALITY IN II/aVF] Compared to ECG 04/17/2022 20:03:09 Myocardial infarct finding now present Atrial fibrillation no longer present Intraventricular conduction delay no longer present ST (T wave) deviation no longer present Electronically Signed On 03-28-2024 23:13:28 SURVEY RESEARCH TEACHER by TIM STEPHENS [email or web address]
[2024-03-27 15:21] LABS: Alanine Aminotransferase 30 U/L (0-41); Albumin Level 4.2 g/dL (3.5-5.2); Alkaline Phosphatase 80 U/L (40-130); Anion Gap 18.2 (5-19); Aspartate Amino Transferase 37 U/L (0-40); Blood Urea Nitrogen 13 mg/dL (8-23); Calcium 9.4 mg/dL (8.5-10.5); Carbon Dioxide 21 mmol/L (22-29); Chloride 95 mmol/L (98-107); Creatinine Clr Calc Pharmacy 81.6279; Glomerular Filtration Rate 51.4 mL/min (90-130); Glucose 86 mg/dL (65-115); Lipase 34 U/L (13-60); Osmolality Calculated 269 mOsm/kg (285-295); Potassium 4.2 mmol/L (3.5-5.1); Sodium 130 mmol/L (136-145); Total Bilirubin 0.5 mg/dL (0.15-1.2); Total Protein 7.2 g/dL (6.6-8.7)
[2024-03-27 15:33] VITALS: BP 147/84; RESP 18; O2SAT 98
[2024-03-27 15:52] LABS: Bilirubin Urine Negative (Negative); Blood Urine 1+ (Negative); Glucose Urine UA Negative (Normal); Ketones Urine Negative (Negative); Leukocyte Esterase Urine Negative (Negative); Nitrate Urine Negative (Negative); Protein Urine Negative (Negative); Urine Appearance Clear (CLEAR); Urine Color Yellow (Yellow); pH Urine 5.5 (5-7)
[2024-03-27 15:57] LABS: Add Urine Microscopic? YES; Bacteria Urine None Seen /hpf; Hyaline Casts Urine 0-4 /lpf; Squamous Epithelial Cell Urine 0-5 /hpf (0-5); WBC Urine 0-5 /hpf (0-5)
[2024-03-27 15:58] LABS: Specific Gravity, Urine 1.073 (1.005-1.030)
[2024-03-27 16:12] VITALS: O2SAT 94
[2024-03-27] MEDS: aspirin 81 mg Chew Tablet 324 MG PO (16:17)
[2024-03-27 16:23] LABS: Covid PCR NEGATIVE (Negative); Influenza A POSITIVE (Negative); Influenza B NEGATIVE (Negative); Respiratory Syncytial Virus Ce NEGATIVE (Negative)
[2024-03-27 17:27] VITALS: BP 151/86; PULSE 98; O2SAT 98
== END 2024-03-27 17:28 | disposition home or self-care (01) ==
PROVIDERS: Emergency Provider Emergency Medicine; PCP Family Medicine
DX: J10.1 Influenza due to other identified influenza virus with other respiratory manifestations (principal); R53.1 Weakness; Z79.82 Long term (current) use of aspirin; Z11.52 Encounter for screening for COVID-19; I25.10 Atherosclerotic heart disease of native coronary artery without angina pectoris
CPT/HCPCS: 36415; 36416; 70450; 70496; 70498; 71045; 80053; 81001; 82962; 83690; 85025; 87637; 93005; 99285

== ENCOUNTER → 2024-06-02 08:00 | Outpatient (BNVA) | payer MEDICARE, SELFPAY | PROVIDERS: PCP Family Medicine; Visit Provider Family Medicine | DX: E87.1 Hypo-osmolality and hyponatremia (principal) | CPT/HCPCS: 80053 ==

== ENCOUNTER 2024-06-29 18:18 | Emergency (ER) | payer MEDICARE, SELFPAY ==
[2024-06-29] VITALS (9 sets, daily range): BP systolic 120–130; BP diastolic 75–110; PULSE 74–168; RESP 18–27; TEMP 36.7; O2SAT 90–98; BMI 43.8
--- NOTE | 2024-06-29 18:28 | ECG_ITS ---
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 Measurements Intervals [place] Rate: 166 P: 0 WI: 0 QRS: -29 QRSD: 133 T: 39 QT: 272 QTc: 452 Interpretive Statements SUPRAVENTRICULAR TACHYCARDIA BORDERLINE LEFT AXIS DEVIATION [QRS AXIS < -20] INTRAVENTRICULAR CONDUCTION DELAY [130+ ms QRS DURATION] CRITICAL TEST RESULT Compared to ECG 03/27/2024 15:08:14 Intraventricular conduction delay now present Sinus rhythm no longer present Myocardial infarct finding no longer present Electronically Signed On 06-29-2024 19:38:37 CDT by José Miguel Farias M.D. [email or web address]
--- NOTE | 2024-06-29 18:31 | XRR_ITS ---
PROCEDURE INFORMATION: Exam: XR Chest Exam date and time: 06/29/2024 6:38 PM Age: 63 years old Clinical indication: Shortness of breath; Additional info: SOB TECHNIQUE: Imaging protocol: Radiologic exam of the chest. Views: 1 view. COMPARISON: CR XR chest 1V portable [id number] 03/27/2024 3:00 PM FINDINGS: Lungs: Bilateral hilar to lower lobe atelectasis versus minimal infiltrate. Pleural spaces: Unremarkable. No pleural effusion. No pneumothorax. Heart/Mediastinum: Cardiomegaly. Bones/joints: Unremarkable. XR/XR chest 1V portable [id number] IMPRESSION: 1. Bilateral hilar to lower lobe atelectasis versus minimal infiltrate. 2. Cardiomegaly.
[2024-06-29 18:46] LABS: Basophils # 0.1 10^3/uL (0.0-0.1); Basophils % 0.8 %; Eosinophils # 0.2 10^3/uL (0.0-0.8); Eosinophils % 1.4 %; Lymphocytes # 4.9 10^3/uL (0.8-4.8); Lymphocytes % 40.9 %; Mean Corpuscular HGB Conc 32.9 g/dL (30-55); Mean Corpuscular Hemoglobin 30.4 pg (27-33); Mean Corpuscular Volume 92.4 fl (82-101); Mean Platelet Volume 9.4 fL (7.4-10.4); Monocytes % 8.2 %; Neutrophils # 5.76 10^3/uL (1.8-7.7); Neutrophils % 48.4 %; Nucleated Red Blood Cells % 0 %; Platelet Count 293 10^3/cmm (157-399); Red Blood Count 5.63 10^6/uL (3.85-5.65); Red Cell Distribution Width 13.9 % (12.1-15.1); White Blood Count 11.87 10^3/uL (3.29-11.43)
--- NOTE | 2024-06-29 18:50 | ED_ITS ---
HPI - Arrhythmia/Palpitations 2 General: Chief Complaint: Arrhythmia/Palpitations Stated Complaint: Heart rate high 167 Can't get it down Time Seen by Provider: 06/29/24 18:30 Source: patient History of Present Illness: Patient is a nontoxic-appearing patient is a nontoxic 63-year-old gentleman who has a history of atrial fibrillation and presents to the ER with report of palpitations and tachycardia. He started feeling palpitations around 5 PM this evening and has been in and out of A-fib with RVR several occasions in the past. He has been compliant with his medications. He denies any chest pain or shortness of breath. He states he does always seem to have some pain around his right clavicle where he previously broke that bone whenever he goes into A-fib with RVR. He denies any pain radiating into his back. No nausea vomiting or diaphoresis. It does make him feel generally unwell and fatigued. He denies any recent illness. MD complaint: rapid heart beat and irregular heart beat Duration: constant Severity: moderate Related Data Previous Rx's ?Medication ?Instructions ?Recorded aspirin 81 mg tablet,delayed 81 mg PO DAILY #90 tabs 1 03/09/21 release diltiazem HCl 120 mg See Rx Instructions .Route 0 04/06/24 capsule,extended release 24 hr .COMPLEX #90 caps rosuvastatin 20 mg tablet See Rx Instructions .Route 0 05/20/24 .COMPLEX #90 tabs lisinopril 5 mg tablet See Rx Instructions .Route 0 05/30/24 .COMPLEX #90 tabs metoprolol succinate 50 mg See Rx Instructions .Route 05/30/24 tablet,extended release 24 hr .COMPLEX #90 tabs Allergies Allergy/AdvReac Type Severity Reaction Status Date / Time No Known Allergies Allergy Verified 06/02/24 09:58 Review of Systems 2 Const: Reports: fatigue and malaise; Denies: fever(s) or chills ENMT: Denies: throat pain Card: Reports: palpitations; Denies: chest pain Resp: Denies: dyspnea GI: Denies: abdominal pain Musc: Denies: neck pain Skin/Breast: Denies: rash PFSH ED 2 PFSH: Medical History Fatigue SVT (supraventricular tachycardia) Coronary artery disease Surgical History Hx of heart artery stent Family History Grandfather CAD (coronary artery disease) Suicide Father Cancer Mother Diabetes Lung disease Grandmother Stroke Denies family history of Clotting disorder Dementia Chronic kidney disease (CKD) Anesthesia complication Bleeding disorder Social History Smoking and tobacco/nicotine status: never used tobacco/nicotine Alcohol intake: never Substance/Drug Use: never Adopted: No Lives independently: Yes Physical Exam 2 Const: COMMON NORMALS: no acute distress, average body habitus, alert and well nourished GENERAL APPEARANCE: cooperative ORIENTATION/CONSCIOUSNESS: Yes awake HENMT: COMMON NORMALS: normocephalic and atraumatic HEAD & SCALP: n ormocephalic and atraumatic Eye: COMMON NORMALS: conjunctivae normal CONJUNCTIVA: Yes conjunctivae normal Neck/C-Spine: GENERAL: Yes normal visual inspection Resp: COMMON NORMALS: normal respiratory effort, No retractions and No use of accessory muscles Cardio: COMMON NORMALS: Peripheral pulses 2+ throughout PERIPHERAL PULSES: Peripheral pulses 2+ throughout OTHER: Tachycardic, irregular irregular GI: COMMON NORMALS: Soft to palpation and non-tender PALPATION: Yes Soft to palpation Extremity: COMMON NORMALS: full ROM and no pedal edema Neuro: COMMON NORMALS: no focal motor deficits SENSORIUM/ORIENTATION: Yes alert Skin: COMMON NORMALS: no rashes or lesions noted GENERAL SKIN EXAM: no rashes or lesions noted Course 2 Vital Signs: Vital signs: Vital Signs Temperature 98.1 F 06/29/24 18:26 Pulse Rate 81 06/29/24 20:40 Respiratory Rate 19 H 06/29/24 20:40 Blood Pressure 120/75 06/29/24 20:40 Pulse Oximetry 92 06/29/24 20:40 Oxygen Delivery Me thod Room Air 06/29/24 19:01 MDM - Arrhythmia/Palpitations Medical Decision Making Patient is a 63-year-old male with a history of atrial fibrillation who states he has had A-fib with RVR in the past and felt sudden onset of palpitations with racing heart around 5:30 PM this evening. His EKG was consistent with A-fib with RVR with a heart rate in the 160s. He was given 2 g of magnesium and 1 dose of IV diltiazem with conversion to sinus rhythm. I discussed the need for patient likely need to be anticoagulated and follow-up with his primary care provider regarding this. He does take aspirin daily. Chest x-ray shows some bibasilar atelectasis. He denies any fevers or cough or congestion I think pneumonia is less likely. He does have cardiomegaly noted on his chest x-ray. His laboratory workup is unremarkable other than his a delta troponin was positive. This is not surprising given his A-fib with RVR. He denies any chest pain and on reassessment states he feels completely better. He does not have any desire for admission and is eager for discharge home. I feel this is reasonable and his tachycardia recently explains his mild elevated troponin. I have recommended follow-up with his PCP and internal revenue service agent and he is given strict return precautions. Differential Diagnosis Likely palpitations, sinus tachycardia, artial fibrillation, artial flutter, supraventricular tachycardia and ventricular tachycardia Lab Data I reviewed the patient's lab results. 06/29/24 18:39 06/29/24 18:39 Radiology Impressions Chest X-Ray 06/29/24 18:31 IMPRESSION: 1. Bilateral hilar to lower lobe atelectasis versus minimal infiltrate. 2. Cardiomegaly. Laboratory Results WBC 11.87 10^3/uL (3.29-11.43) H 06/29/24 18:39 RBC 5.63 10^6/uL (3.85-5.65) 06/29/24 18:39 Hgb 17.10 g/dL (11.27-16.99) H 06/29/24 18:39 Hct 52.0 % (37-53) 06/29/24 18:39 MCV 92.4 fl (82-101) 06/29/24 18:39 MCH 30.4 pg (27-33) 06/29/24 18:39 MCHC 32.9 g/dL (30-55) 06/29/24 18:39 RDW 13.9 % (12.1-15.1) 06/29/24 18:39 Plt Count 293 10^3/cmm (157-399) 06/29/24 18:39 MPV 9.4 fL (7.4-10.4) 06/29/24 18:39 Neut % (Auto) 48.4 % 06/29/24 18:39 Lymph % (Auto) 40.9 % 06/29/24 18:39 Chaves % (Auto) 8.2 % 06/29/24 18:39 Eos % (Auto) 1.4 % 06/29/24 18:39 Baso % (Auto) 0.8 % 06/29/24 18:39 Neut # (Auto) 5.76 10^3/uL (1.8-7.7) 06/29/24 18:39 Lymph # (Auto) 4.9 10^3/uL (0.8-4.8) H 06/29/24 18:39 Chaves # (Auto) 1.0 10^3/uL (0.2-0.9) H 06/29/24 18:39 Eos # (Auto) 0.2 10^3/uL (0.0-0.8) 06/29/24 18:39 Baso # (Auto) 0.1 10^3/uL (0.0-0.1) 06/29/24 18:39 Nucleated RBC % (auto) 0 % 06/29/24 18:39 Nucleated RBCs # 0.0 /100WBC 06/29/24 18:39 PT 12.50 SECONDS (12.1-14.9) 06/29/24 18:39 INR 0.88 (0.8-1.2) 06/29/24 18:39 APTT 25.0 SECONDS (23.9-36.7) 06/29/24 18:39 Sodium 134 mmol/L (136-145) L 06/29/24 18:39 Potassium 4.6 mmol/L (3.5-5.1) 06/29/24 18:39 Chloride 100 mmol/L (98-107) 06/29/24 18:39 Carbon Dioxide 17 mmol/L (22-29) L 06/29/24 18:39 Anion Gap 21.6 (5-19) H 06/29/24 18:39 BUN 16 mg/dL (8-23) 06/29/24 18:39 Creatinine 1.3 mg/dL (0.7-1.2) H 06/29/24 18:39 GFR Calculation 55.9 mL/min (90-130) L 06/29/24 18:39 Glucose 105 mg/dL (65-115) 06/29/24 18:39 Calculated Osmolality 280 mOsm/kg (285-295) L 06/29/24 18:39 Lactic Acid 1.8 mmol/L (0.5-2.2) 06/29/24 18:39 Calcium 10.3 mg/dL (8.5-10.5) 06/29/24 18:39 Magnesium 2.2 mg/dL (1.7-2.3) 06/29/24 18:39 Total Bilirubin 0.2 mg/dL (0.15-1.2) 06/29/24 18:39 AST 25 U/L (0-40) 06/29/24 18:39 ALT 39 U/L (0-41) 06/29/24 18:39 Alkaline Phosphatase 103 U/L (40-130) 06/29/24 18:39 Troponin T Baseline 12 ng/L (0-15) 06/29/24 18:39 Troponin T 120 Minute 29.79 ng/L (0-15) H 06/29/24 20:15 Delta Troponin T 17.79 ABS# (0-10) H* 06/29/24 20:15 Total Protein 7.7 g/dL (6.6-8.7) 06/29/24 18:39 Albumin 4.6 g/dL (3.5-5.2) 06/29/24 18:39 Globulin 3.1 g/dL (1.3-4.6) 06/29/24 18:39 All radiology interpretation(s) finalized by discharge EKG Data EKG 1: I personally reviewed and interpreted this EKG as follows: EKG interpretation date: 06/29/24 EKG interpretation time: 18:30 Computer generated interpretation: Narrow complex tachycardia with a rate of 166 bpm. Appears to be irregular. No ST elevations. QTc is 363 ms. Other EKG comments: Chest X-Ray 06/29/24 18:31 IMPRESSION: 1. Bilateral hilar to lower lobe atelectasis versus minimal infiltrate. 2. Cardiomegaly. EKG 2: I personally reviewed and interpreted this EKG as follows: EKG interpretation date: 06/29/24 EKG interpretation time: 20:20 Interpretation: Sinus rhythm. Rate of [address] ovation or depressions. QTc of 393 ms. Other EKG comments: Chest X-Ray 06/29/24 18:31 IMPRESSION: 1. Bilateral hilar to lower lobe atelectasis versus minimal infiltrate. 2. Cardiomegaly. Discharge Plan Discharge Patient Disposition: Home Clinical Impression: Atrial fibrillation with RVR Condition: Stable Prescriptions: No Action aspirin 81 mg tablet,delayed release (DR/EC) 81 mg PO DAILY Qty: 90 3RF diltiazem HCl 120 mg capsule,extended release 24hr See Rx Instructions .ROUTE .COMPLEX Qty: 90 0RF Dose Instruction: Take 1 capsule by mouth once daily Rx Instructions: Take 1 capsule by mouth once daily rosuvastatin 20 mg tablet See Rx Instructions .ROUTE .COMPLEX Qty: 90 0RF Dose Instruction: Take 1 tablet by mouth once daily Rx Instructions: Take 1 tablet by mouth once daily metoprolol succinate 50 mg tablet extended release 24 hr See Rx Instructions .ROUTE .COMPLEX Qty: 90 0RF Dose Instruction: Take 1 tablet by mouth once daily Rx Instructions: Take 1 tablet by mouth once daily lisinopril 5 mg tablet See Rx Instructions .ROUTE .COMPLEX Qty: 90 0RF Dose Instruction: Take 1 tablet by mouth once daily Rx Instructions: Take 1 tablet by mouth once daily Discharge Orders: Discharge ED (Routine); Ordered 06/29/24 Ordered By: Amadeo Cordero Referrals: Rashel Augustine DO [Primary Care Provider] - Discharge Diet: Usual diet Discharge Activity: Increase activity as tolerated Patient Instructions: Atrial Fibrillation, Opioid Safety, Pain Management Activity Restrictions/Additional Instructions: Continue home medications as previously directed. Contact your primary care provider internal revenue service agent tomorrow for follow-up next week. Return to the emergency department for development of chest pain, shortness of breath, difficulty breathing, or any other concerns. Print Language: Lao Coding Level of Care Code ED [employer] for Olamide Howell
[2024-06-29] MEDS: dilTIAZem 5 mg/mL SDV 5 mL 15 MG IVP (18:56)
[2024-06-29] MEDS: magnesium sulfate premix 2 GM/50 ML PIGGYBACK IV (19:00)
[2024-06-29 19:11] LABS: INR 0.88 (0.8-1.2)
[2024-06-29 19:13] LABS: Troponin(5th) Baseline 12 ng/L (0-15)
[2024-06-29 19:14] LABS: Lactic Sepsis W/Reflex 1.8 mmol/L (0.5-2.2)
[2024-06-29 19:35] LABS: Alanine Aminotransferase 39 U/L (0-41); Albumin Level 4.6 g/dL (3.5-5.2); Alkaline Phosphatase 103 U/L (40-130); Aspartate Amino Transferase 25 U/L (0-40); Blood Urea Nitrogen 16 mg/dL (8-23); Calcium 10.3 mg/dL (8.5-10.5); Carbon Dioxide 17 mmol/L (22-29); Chloride 100 mmol/L (98-107); Creatinine Clr Calc Pharmacy 80.2557; Globulin 3.1 g/dL (1.3-4.6); Glomerular Filtration Rate 55.9 mL/min (90-130); Glucose 105 mg/dL (65-115); Magnesium 2.2 mg/dL (1.7-2.3); Osmolality Calculated 280 mOsm/kg (285-295); Sodium 134 mmol/L (136-145); Total Bilirubin 0.2 mg/dL (0.15-1.2); Total Protein 7.7 g/dL (6.6-8.7)
[2024-06-29 19:46] LABS: Anion Gap 21.6 (5-19); Potassium 4.6 mmol/L (3.5-5.1)
--- NOTE | 2024-06-29 20:15 | ECG_ITS ---
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
[2024-06-29 20:37] LABS: Troponin 5 2HR 29.79 ng/L (0-15)
[2024-06-29 20:45] LABS: Troponin 5 2HR Delta 17.79 ABS# (0-10)
== END 2024-06-29 21:16 | disposition home or self-care (01) ==
PROVIDERS: Emergency Provider Student in an Organized Health Care Education/Training Program; PCP Family Medicine
DX: I48.20 Chronic atrial fibrillation, unspecified (principal); Z79.82 Long term (current) use of aspirin; I25.10 Atherosclerotic heart disease of native coronary artery without angina pectoris
CPT/HCPCS: 36415; 71045; 80053; 83605; 83735; 84484; 85025; 85610; 85730; 93005; 96365; 96375; 99285; J3475; J3490